=== PATIENT | male | born 1955 | race Caucasian/White ===

== ENCOUNTER 2019-09-02 10:45 | Inpatient (IN) ==
[2019-09-02 11:32] LABS: Basophils # 0.1 10*3/uL (0.0-0.2); Basophils % 0.4 % (0.0-0.8); Eosinophils # 0.3 10*3/uL (0.0-0.87); Eosinophils % 1.7 % (0.00-10.9); Hematocrit 43.1 VOL% (42.0-52.0); Hemoglobin 14.2 GM/DL (14.0-18.0); Immature Granulocytes % 0.7 %; Immature Granulocytes Absolute 0.12 #; Lymphocytes # 2.5 10*3/uL (1.4-4.0); Lymphocytes % 14.7 % (21.2-54.2); Mean Corpuscular HGB Conc 32.9 GM/DL (32-36); Mean Corpuscular Volume 87.2 FL (87-102); Mean Platelet Volume 11.3 FL (9.6-12.0); Monocytes % 7.2 % (1.7-12.7); Neutrophils % 75.3 % (38.7-73.9); Platelet Count 222 T/CUMM (130-400); Red Blood Count 4.94 MC/CUMM (3.8-5.5); Red Cell Distribution Width 14.2 % (9.3-17.3); White Blood Count 16.8 T/CUMM (4-12)
[2019-09-02] MEDS ORDERED: BISACODYL 5 MG TABLET PO PRN (11:34)
[2019-09-02] MEDS ORDERED: ACETAMINOPHEN 325 MG TABLET PO PRN (11:34)
[2019-09-02] MEDS ORDERED: ALBUTEROL/IPRATROPIUM 3 ML NEB RESP TX PRN (11:34)
[2019-09-02] MEDS ORDERED: ONDANSETRON 4 MG/2 ML VIAL IV PRN (11:34)
[2019-09-02 12:00] LABS: Alanine Aminotransferase < 9 U/L (16-61); Albumin 2.8 G/DL (3.4-5.0); Alkaline Phosphatase 84 U/L (45-117); Aspartate Amino Transferase 10 U/L (0-37); Blood Urea Nitrogen 9 MG/DL (7-18); Glucose 103 MG/DL (74-106); Osmolality,Calculated 281.1 MOS/KG (273-304); Total Protein 6.8 G/DL (6.4-8.3)
[2019-09-02 12:03] LABS: Estimated Glom Filtration Rate 0 ML/MIN
[2019-09-02] MEDS: LACTATED RINGERS 1,000 ML IV SCH ×2 (13:48→22:35)
[2019-09-02] MEDS: PIPERACILLIN/TAZOBACTAM 3,375 MG in SODIUM CHLORIDE 0.9% 100 ML IV SCH ×2 (13:48→21:46)
[2019-09-02] MEDS ORDERED: tiZANidine 4 MG TABLET PO PRN (14:32)
[2019-09-02] MEDS ORDERED: HYDROmorphone 2 MG/1 ML VIAL IV PRN (14:33)
[2019-09-02] MEDS: carvediloL 6.25 MG TABLET PO SCH (21:23)
[2019-09-02] MEDS: GABAPENTIN 600 MG TABLET PO SCH (21:23)
[2019-09-02] MEDS: MELATONIN 3 MG TABLET PO SCH (21:23)
[2019-09-02] MEDS: SIMVASTATIN 10 MG TABLET PO SCH (21:23)
[2019-09-02] MEDS: TAMSULOSIN 0.4 MG CAPSULE PO SCH (21:23)
[2019-09-02] MEDS: busPIRone 10 MG TABLET PO SCH (21:23)
[2019-09-03] MEDS: PIPERACILLIN/TAZOBACTAM 3,375 MG in SODIUM CHLORIDE 0.9% 100 ML IV SCH ×2 (05:30→13:10)
[2019-09-03] MEDS ORDERED: BUPIVACAINE MPF 0.25% 30 ML VIAL ONE (06:31)
[2019-09-03 06:38] LABS: Basophils # 0.1 10*3/uL (0.0-0.2); Basophils % 0.4 % (0.0-0.8); Eosinophils # 0.2 10*3/uL (0.0-0.87); Eosinophils % 1.5 % (0.00-10.9); Hematocrit 44.5 VOL% (42.0-52.0); Hemoglobin 14.4 GM/DL (14.0-18.0); Immature Granulocytes % 0.6 %; Lymphocytes # 2.8 10*3/uL (1.4-4.0); Lymphocytes % 17.5 % (21.2-54.2); Mean Corpuscular HGB Conc 32.4 GM/DL (32-36); Mean Corpuscular Volume 86.6 FL (87-102); Mean Platelet Volume 11.6 FL (9.6-12.0); Monocytes % 9.2 % (1.7-12.7); Neutrophils % 70.8 % (38.7-73.9); Platelet Count 240 T/CUMM (130-400); Red Blood Count 5.14 MC/CUMM (3.8-5.5); Red Cell Distribution Width 13.9 % (9.3-17.3); White Blood Count 15.7 T/CUMM (4-12)
[2019-09-03 07:03] LABS: Calcium 8.2 MG/DL (8.5-10.1); Osmolality,Calculated 275.5 MOS/KG (273-304)
[2019-09-03] MEDS ORDERED: ceFAZolin 1,000 MG VIAL ONE (07:12)
[2019-09-03] MEDS ORDERED: MIDAZOLAM 2 MG/2 ML VIAL ONE (07:24)
[2019-09-03] MEDS ORDERED: LIDOCAINE 2% 5 ML VIAL ONE (07:24)
[2019-09-03] MEDS ORDERED: ONDANSETRON 4 MG/2 ML VIAL ONE (07:24)
[2019-09-03] MEDS ORDERED: LACTATED RINGERS 1,000 ML IV ONE (07:24)
[2019-09-03] MEDS ORDERED: propofoL 200 MG/20 ML VIAL IV ONE (07:24)
[2019-09-03] MEDS ORDERED: fentaNYL 100 MCG/2 ML VIAL ONE (07:24)
[2019-09-03] MEDS ORDERED: Vortioxetine [Trintellix] 10 MG PO SCH (09:00)
[2019-09-03] MEDS: LOSARTAN 50 MG TABLET PO SCH (09:15)
[2019-09-03] MEDS: busPIRone 10 MG TABLET PO SCH ×2 (09:15→20:38)
[2019-09-03] MEDS: carvediloL 6.25 MG TABLET PO SCH ×2 (09:15→20:38)
[2019-09-03] MEDS: ASPIRIN EC 81 MG TABLET PO SCH (09:15)
[2019-09-03] MEDS: LACTATED RINGERS 1,000 ML IV SCH ×3 (09:15→20:39)
[2019-09-03] MEDS: CETIRIZINE 10 MG TABLET PO SCH (09:15)
[2019-09-03] MEDS: TAMSULOSIN 0.4 MG CAPSULE PO SCH ×2 (09:15→20:38)
[2019-09-03] MEDS: PANTOPRAZOLE 40 MG TABLET PO SCH (09:16)
[2019-09-03] MEDS: GABAPENTIN 600 MG TABLET PO SCH ×2 (09:17→20:38)
[2019-09-03] MEDS: FLUTICASONE 50 MCG NASAL SPRAY 16 GM BOTTLE BOTH NARES SCH (09:18)
[2019-09-03] MEDS: SIMVASTATIN 10 MG TABLET PO SCH (20:38)
[2019-09-03] MEDS: MELATONIN 3 MG TABLET PO SCH (20:38)
[2019-09-04] MEDS: PIPERACILLIN/TAZOBACTAM 3,375 MG in SODIUM CHLORIDE 0.9% 100 ML IV SCH ×2 (00:30→09:27)
[2019-09-04] MEDS: LACTATED RINGERS 1,000 ML IV SCH ×2 (05:13→09:19)
[2019-09-04] MEDS: TAMSULOSIN 0.4 MG CAPSULE PO SCH (09:11)
[2019-09-04] MEDS: CETIRIZINE 10 MG TABLET PO SCH (09:11)
[2019-09-04] MEDS: ASPIRIN EC 81 MG TABLET PO SCH (09:11)
[2019-09-04] MEDS: GABAPENTIN 600 MG TABLET PO SCH (09:11)
[2019-09-04] MEDS: PANTOPRAZOLE 40 MG TABLET PO SCH (09:11)
[2019-09-04] MEDS: busPIRone 10 MG TABLET PO SCH (09:11)
[2019-09-04] MEDS: carvediloL 6.25 MG TABLET PO SCH (09:11)
[2019-09-04] MEDS: LOSARTAN 50 MG TABLET PO SCH (09:11)
[2019-09-04] MEDS: FLUTICASONE 50 MCG NASAL SPRAY 16 GM BOTTLE BOTH NARES SCH (09:12)
[2019-09-04] MEDS ORDERED: SODIUM HYPOCHLORITE 0.25% IRRIG 473 ML BOTTLE TOP SCH (10:00)
[2019-09-04 11:57] VITALS: BP 135/71
== END 2019-09-04 15:27 | DRG 364 ==
LOC: EDBD → EDUNIT# → N.ED 10:45 → N.EDINP 10:45 → N.3E 13:32
PROVIDERS: ADMIT Surgery; ATTEND Surgery

== ENCOUNTER 2020-04-18 23:52 | Inpatient (IN) ==
[2020-04-19] MEDS ORDERED: SODIUM CHLORIDE 0.9% 1,000 ML IV STA (00:21)
[2020-04-19 00:32] LABS: Basophils # 0.1 10*3/uL (0.0-0.2); Basophils % 0.5 % (0.0-0.8); Eosinophils # 0.1 10*3/uL (0.0-0.87); Eosinophils % 0.9 % (0.00-10.9); Hematocrit 50.7 VOL% (42.0-52.0); Immature Granulocytes % 1.4 %; Immature Granulocytes Absolute 0.22 #; Lymphocytes # 2.7 10*3/uL (1.4-4.0); Lymphocytes % 17.7 % (21.2-54.2); Mean Corpuscular Volume 92.2 FL (87-102); Mean Platelet Volume 11.8 FL (9.6-12.0); Monocytes % 4.5 % (1.7-12.7); Platelet Count 277 T/CUMM (130-400); Red Cell Distribution Width 14.2 % (9.3-17.3); White Blood Count 15.4 T/CUMM (4-12)
[2020-04-19 00:35] LABS: Hemoglobin 15.3 GM/DL (14.0-18.0)
[2020-04-19 00:50] LABS: Albumin 2.4 G/DL (3.4-5.0); Bilirubin,Total 0.4 MG/DL (0.2-1.0); Calcium 9.2 MG/DL (8.5-10.1); Osmolality,Calculated 341.5 MOS/KG (273-304); Total Protein 8.2 G/DL (6.4-8.3)
[2020-04-19 01:42] LABS: Calcium 8.9 MG/DL (8.5-10.1); Osmolality,Calculated 339.6 MOS/KG (273-304)
[2020-04-19] MEDS ORDERED: LACTATED RINGERS 1,000 ML IV ONE (01:57)
[2020-04-19] MEDS ORDERED: ONDANSETRON 4 MG/2 ML VIAL IV PRN (01:58)
[2020-04-19] MEDS ORDERED: ALBUTEROL 2.5 MG/3 ML NEB RESP TX PRN (01:58)
[2020-04-19] MEDS ORDERED: LACTATED RINGERS 1,000 ML IV SCH (03:00)
[2020-04-19] MEDS: DEXTROSE 5% 1,000 ML IV SCH ×5 (04:09→21:34)
[2020-04-19] MEDS ORDERED: DEXTROSE 50% 25 GM/50 ML VIAL IV PRN (05:44)
[2020-04-19] MEDS ORDERED: GLUCAGON 1 MG VIAL IM PRN (05:44)
[2020-04-19] MEDS ORDERED: ENOXAPARIN 40 MG/0.4 ML SYRINGE SUBCUT SCH (06:00)
[2020-04-19] MEDS: ENOXAPARIN 40 MG/0.4 ML SYRINGE SUBCUT SCH (06:24)
[2020-04-19 08:04] LABS: Basophils # 0.1 10*3/uL (0.0-0.2); Basophils % 0.5 % (0.0-0.8); Eosinophils # 0.1 10*3/uL (0.0-0.87); Eosinophils % 0.7 % (0.00-10.9); Hematocrit 45.6 VOL% (42.0-52.0); Hemoglobin 13.5 GM/DL (14.0-18.0); Immature Granulocytes % 1.4 %; Immature Granulocytes Absolute 0.25 #; Lymphocytes # 3.1 10*3/uL (1.4-4.0); Lymphocytes % 17.8 % (21.2-54.2); Mean Corpuscular HGB Conc 29.6 GM/DL (32-36); Mean Corpuscular Volume 93.1 FL (87-102); Mean Platelet Volume 12.2 FL (9.6-12.0); Monocytes % 5.8 % (1.7-12.7); Neutrophils % 73.8 % (38.7-73.9); Platelet Count 222 T/CUMM (130-400); Red Cell Distribution Width 14.1 % (9.3-17.3); White Blood Count 17.3 T/CUMM (4-12)
[2020-04-19 08:06] LABS: Calcium 8.6 MG/DL (8.5-10.1)
[2020-04-19] MEDS ORDERED: APIXABAN 2.5 MG TABLET PER TUBE SCH (09:00)
[2020-04-19] MEDS ORDERED: FAMOTIDINE 20 MG TABLET PO SCH (09:00)
[2020-04-19 11:06] LABS: Bilirubin,Urine Negative (Negative); Blood, Urine Large mg/dL (Negative); Glucose,Urine (UA) Negative (Negative); Ketones,Urine Negative (Negative); Mucus,Urine Many /LPF (Occasional); Nitrite,Urine Negative (Negative); Protein,Urine 100 MG/DL; RBC,Urine 2767 /HPF (0-4); Urine Appearance CLOUDY (Clear); Urine Color Yellow (Yellow); Urine Specific Gravity 1.025 (1.001-1.035); Urine Urobilinogen < 2.0 EU/DL (0.2-1.0); WBC,Urine 17 /HPF (0-6)
[2020-04-19] MEDS: TAMSULOSIN 0.4 MG CAPSULE PO SCH ×2 (11:12→21:25)
[2020-04-19 16:25] LABS: Calcium 8.6 MG/DL (8.5-10.1); Osmolality,Calculated 330.2 MOS/KG (273-304)
[2020-04-19] MEDS: POTASSIUM CHLORIDE RIDER 10 MEQ in PREMIX 1 EACH IV PRN ×5 (18:10→23:48)
[2020-04-20] MEDS: DEXTROSE 5% 1,000 ML IV SCH ×5 (01:32→21:58)
[2020-04-20 04:32] LABS: Basophils # 0.1 10*3/uL (0.0-0.2); Basophils % 0.3 % (0.0-0.8); Eosinophils # 0.2 10*3/uL (0.0-0.87); Eosinophils % 1.2 % (0.00-10.9); Hematocrit 42.3 VOL% (42.0-52.0); Hemoglobin 13.1 GM/DL (14.0-18.0); Immature Granulocytes Absolute 0.15 #; Lymphocytes # 2.8 10*3/uL (1.4-4.0); Lymphocytes % 17.9 % (21.2-54.2); Mean Corpuscular Volume 88.9 FL (87-102); Mean Platelet Volume 11.8 FL (9.6-12.0); Monocytes % 6.3 % (1.7-12.7); Neutrophils % 73.3 % (38.7-73.9); Platelet Count 195 T/CUMM (130-400); Red Blood Count 4.76 MC/CUMM (3.8-5.5); Red Cell Distribution Width 13.4 % (9.3-17.3); White Blood Count 15.6 T/CUMM (4-12)
[2020-04-20 05:00] LABS: Calcium 8.1 MG/DL (8.5-10.1); Osmolality,Calculated 311.3 MOS/KG (273-304)
[2020-04-20] MEDS: POTASSIUM CHLORIDE RIDER 10 MEQ in PREMIX 1 EACH IV PRN ×10 (05:13→22:10)
[2020-04-20] MEDS: ENOXAPARIN 40 MG/0.4 ML SYRINGE SUBCUT SCH (05:13)
[2020-04-20] MEDS: FAMOTIDINE 20 MG/2 ML VIAL IV SCH (08:22)
[2020-04-20] MEDS: TAMSULOSIN 0.4 MG CAPSULE PO SCH ×2 (08:27→21:58)
[2020-04-20] MEDS: busPIRone 10 MG TABLET PO SCH (21:58)
[2020-04-21] MEDS: POTASSIUM CHLORIDE RIDER 10 MEQ in PREMIX 1 EACH IV PRN ×8 (02:28→14:22)
[2020-04-21] MEDS: DEXTROSE 5% 1,000 ML IV SCH ×3 (02:29→14:02)
[2020-04-21 06:22] LABS: Basophils # 0.1 10*3/uL (0.0-0.2); Basophils % 0.3 % (0.0-0.8); Eosinophils # 0.1 10*3/uL (0.0-0.87); Eosinophils % 0.9 % (0.00-10.9); Hemoglobin 13.5 GM/DL (14.0-18.0); Immature Granulocytes % 0.9 %; Immature Granulocytes Absolute 0.13 #; Lymphocytes # 2.4 10*3/uL (1.4-4.0); Lymphocytes % 16.3 % (21.2-54.2); Mean Corpuscular HGB Conc 31.4 GM/DL (32-36); Mean Corpuscular Volume 87.2 FL (87-102); Mean Platelet Volume 11.9 FL (9.6-12.0); Monocytes % 6.1 % (1.7-12.7); Neutrophils % 75.5 % (38.7-73.9); Platelet Count 188 T/CUMM (130-400); Red Blood Count 4.93 MC/CUMM (3.8-5.5); Red Cell Distribution Width 13.2 % (9.3-17.3)
[2020-04-21] MEDS: ENOXAPARIN 40 MG/0.4 ML SYRINGE SUBCUT SCH (06:38)
[2020-04-21 06:45] LABS: Calcium 8.3 MG/DL (8.5-10.1); Osmolality,Calculated 287.7 MOS/KG (273-304)
[2020-04-21] MEDS: LORATADINE 10 MG TABLET PO SCH (08:01)
[2020-04-21] MEDS: busPIRone 10 MG TABLET PO SCH ×2 (08:01→20:10)
[2020-04-21] MEDS: FAMOTIDINE 20 MG/2 ML VIAL IV SCH (08:01)
[2020-04-21] MEDS: MULTIVITAMIN (CENTRUM) TABLET PO SCH (08:01)
[2020-04-21] MEDS: ZINC SULFATE 220 MG CAPSULE PO SCH (08:02)
[2020-04-21] MEDS: ASCORBIC ACID 500 MG TABLET PO SCH (08:02)
[2020-04-21] MEDS: TAMSULOSIN 0.4 MG CAPSULE PO SCH ×2 (08:02→20:10)
[2020-04-22] MEDS: DEXTROSE 5% 1,000 ML IV SCH (02:00)
[2020-04-22 06:24] LABS: INR 2.1; PT Patient Result 21.5 SECS (9.8-11.9)
[2020-04-22 07:24] LABS: Basophils % 0.2 % (0.0-0.8); Eosinophils # 0.2 10*3/uL (0.0-0.87); Eosinophils % 1.3 % (0.00-10.9); Hematocrit 40.9 VOL% (42.0-52.0); Hemoglobin 13.3 GM/DL (14.0-18.0); Immature Granulocytes Absolute 0.12 #; Lymphocytes # 2.3 10*3/uL (1.4-4.0); Lymphocytes % 18.4 % (21.2-54.2); Mean Corpuscular HGB Conc 32.5 GM/DL (32-36); Mean Corpuscular Volume 85.7 FL (87-102); Mean Platelet Volume 12.8 FL (9.6-12.0); Monocytes % 7.6 % (1.7-12.7); Neutrophils % 71.5 % (38.7-73.9); Platelet Count 174 T/CUMM (130-400); Red Blood Count 4.77 MC/CUMM (3.8-5.5); Red Cell Distribution Width 13.2 % (9.3-17.3); White Blood Count 12.3 T/CUMM (4-12)
[2020-04-22 07:40] LABS: Calcium 6.9 MG/DL (8.5-10.1)
[2020-04-22 07:46] LABS: Lymphocytes 20 % (20-55); Segmented Neutrophils 73 % (50-85); Total Cells Counted 100
[2020-04-22 07:47] LABS: Hypochromasia 1+; Microcytosis 1+; Platelet Estimate Adequate
[2020-04-22] MEDS ORDERED: ceFAZolin 1,000 MG in SYRINGE 1 EACH IV ONE (08:00)
[2020-04-22] MEDS ORDERED: LACTATED RINGERS 1,000 ML IV SCH (08:00)
[2020-04-22] MEDS ORDERED: PHYTONADIONE 10 MG/1 ML AMP SUBCUT ONE (08:24)
[2020-04-22] MEDS: FAMOTIDINE 20 MG/2 ML VIAL IV SCH (09:19)
[2020-04-22] MEDS: ASCORBIC ACID 500 MG TABLET PO SCH (09:20)
[2020-04-22] MEDS: busPIRone 10 MG TABLET PO SCH ×2 (09:21→20:00)
[2020-04-22] MEDS: TAMSULOSIN 0.4 MG CAPSULE PO SCH ×2 (09:22→20:01)
[2020-04-22] MEDS: LORATADINE 10 MG TABLET PO SCH (09:22)
[2020-04-22] MEDS: MULTIVITAMIN (CENTRUM) TABLET PO SCH (09:22)
[2020-04-22] MEDS: ZINC SULFATE 220 MG CAPSULE PO SCH (09:23)
[2020-04-22] MEDS ORDERED: MAGNESIUM SULF RIDER 2 GM in PREMIX 1 EACH IV ONE (09:29)
[2020-04-22] MEDS ORDERED: POTASSIUM PHOSPHATE 15 MMOL in SODIUM CHLORIDE 0.9% 100 ML IV ONE (10:28)
[2020-04-22] MEDS: POTASSIUM CHLORIDE INJ 40 MEQ in DEXTROSE 5% LACTATED RINGERS 1,000 ML IV SCH ×2 (11:51→20:09)
[2020-04-23] MEDS: POTASSIUM CHLORIDE INJ 40 MEQ in DEXTROSE 5% LACTATED RINGERS 1,000 ML IV SCH ×3 (01:38→20:29)
[2020-04-23 05:25] LABS: Basophils % 0.2 % (0.0-0.8); Eosinophils # 0.1 10*3/uL (0.0-0.87); Eosinophils % 0.9 % (0.00-10.9); Hematocrit 38.4 VOL% (42.0-52.0); Hemoglobin 12.7 GM/DL (14.0-18.0); Immature Granulocytes % 0.6 %; Immature Granulocytes Absolute 0.07 #; Lymphocytes # 1.6 10*3/uL (1.4-4.0); Lymphocytes % 15.2 % (21.2-54.2); Mean Corpuscular HGB Conc 33.1 GM/DL (32-36); Mean Platelet Volume 12.8 FL (9.6-12.0); Monocytes % 8.5 % (1.7-12.7); Neutrophils % 74.6 % (38.7-73.9); Platelet Count 169 T/CUMM (130-400); Red Blood Count 4.57 MC/CUMM (3.8-5.5); Red Cell Distribution Width 13.2 % (9.3-17.3); White Blood Count 10.8 T/CUMM (4-12)
[2020-04-23 05:40] LABS: INR 1.3; PT Patient Result 13.7 SECS (9.8-11.9)
[2020-04-23 06:16] LABS: Calcium 6.9 MG/DL (8.5-10.1); Osmolality,Calculated 284.8 MOS/KG (273-304)
[2020-04-23] MEDS ORDERED: LACTATED RINGERS 1,000 ML IV SCH (08:00)
[2020-04-23] MEDS ORDERED: ceFAZolin 1,000 MG in SYRINGE 1 EACH IV ONE (08:26)
[2020-04-23] MEDS ORDERED: propofoL 200 MG/20 ML VIAL IV ONE (09:00)
[2020-04-23] MEDS ORDERED: LIDOCAINE 2% 5 ML VIAL ONE (09:00)
[2020-04-23] MEDS ORDERED: ETOMIDATE 20 MG/10 ML VIAL IV ONE (09:00)
[2020-04-23] MEDS: FAMOTIDINE 20 MG/2 ML VIAL IV SCH (09:30)
[2020-04-23] MEDS ORDERED: CALCIUM GLUCONATE 2,000 MG in SODIUM CHLORIDE 0.9% 100 ML IV ONE (10:00)
[2020-04-23] MEDS: busPIRone 10 MG TABLET PO SCH ×2 (10:28→20:29)
[2020-04-23] MEDS: MULTIVITAMIN (CENTRUM) TABLET PO SCH (10:29)
[2020-04-23] MEDS: LORATADINE 10 MG TABLET PO SCH (10:32)
[2020-04-23] MEDS: TAMSULOSIN 0.4 MG CAPSULE PO SCH ×2 (10:32→20:29)
[2020-04-23] MEDS: ASCORBIC ACID 500 MG TABLET PO SCH (10:34)
[2020-04-23] MEDS: ZINC SULFATE 220 MG CAPSULE PO SCH (10:34)
[2020-04-23] MEDS: THIAMINE 100 MG TABLET PER TUBE SCH (17:40)
[2020-04-24] MEDS: POTASSIUM CHLORIDE INJ 40 MEQ in DEXTROSE 5% LACTATED RINGERS 1,000 ML IV SCH ×3 (02:18→21:38)
[2020-04-24 06:36] LABS: Calcium 8.5 MG/DL (8.5-10.1); Osmolality,Calculated 278.3 MOS/KG (273-304)
[2020-04-24] MEDS ORDERED: SODIUM PHOSPHATE INJ 15 MMOL in SODIUM CHLORIDE 0.9% 250 ML IV ONE ×2 (07:39→18:00)
[2020-04-24] MEDS: MULTIVITAMIN (CENTRUM) TABLET PO SCH (10:18)
[2020-04-24] MEDS: ASCORBIC ACID 500 MG TABLET PO SCH (10:18)
[2020-04-24] MEDS: FAMOTIDINE 20 MG/2 ML VIAL IV SCH (10:18)
[2020-04-24] MEDS: TAMSULOSIN 0.4 MG CAPSULE PO SCH ×2 (10:18→21:37)
[2020-04-24] MEDS: busPIRone 10 MG TABLET PO SCH ×2 (10:18→21:37)
[2020-04-24] MEDS: LORATADINE 10 MG TABLET PO SCH (10:19)
[2020-04-24] MEDS: THIAMINE 100 MG TABLET PER TUBE SCH (10:19)
[2020-04-24] MEDS: ZINC SULFATE 220 MG CAPSULE PO SCH (10:19)
[2020-04-24] MEDS: POTASSIUM PHOS/SOD PHOS POWDER 250 MG PACK PO SCH ×2 (17:30→21:37)
[2020-04-24] MEDS ORDERED: ALPRAZolam 0.25 MG TABLET PO ONE (19:28)
[2020-04-25 07:38] LABS: Calcium 7.8 MG/DL (8.5-10.1)
[2020-04-25] MEDS: ZINC SULFATE 220 MG CAPSULE PO SCH (09:39)
[2020-04-25] MEDS: ASCORBIC ACID 500 MG TABLET PO SCH (09:40)
[2020-04-25] MEDS: THIAMINE 100 MG TABLET PER TUBE SCH (09:40)
[2020-04-25] MEDS: MULTIVITAMIN (CENTRUM) TABLET PO SCH (09:40)
[2020-04-25] MEDS: POTASSIUM PHOS/SOD PHOS POWDER 250 MG PACK PO SCH (09:40)
[2020-04-25] MEDS: busPIRone 10 MG TABLET PO SCH (09:40)
[2020-04-25] MEDS: TAMSULOSIN 0.4 MG CAPSULE PO SCH (09:40)
[2020-04-25] MEDS: LORATADINE 10 MG TABLET PO SCH (09:40)
[2020-04-25] MEDS: FAMOTIDINE 20 MG/2 ML VIAL IV SCH (09:41)
[2020-04-25 11:34] VITALS: BP 119/67
== END 2020-04-25 12:36 | disposition home or self-care (01) | DRG 640 ==
LOC: EDUNIT# → EDBD → N.ED 23:52 → N.EDINP 04-19 01:58 → SUATTDRO 04-19 01:58 → N.CC 04-19 03:02 → N.4E 04-21 18:08
PROVIDERS: ADMIT Internal Medicine; ATTEND Internal Medicine
PROC: EGDWPEG (ICD-10-PCS; 2020-04-23 10:35)

== ENCOUNTER 2020-08-07 16:26 | Inpatient (IN) ==
[2020-08-07] MEDS ORDERED: ACETAMINOPHEN 500 MG TABLET PO STA (17:31)
[2020-08-07 17:46] LABS: Alanine Aminotransferase 12 U/L (16-61); Alkaline Phosphatase 87 U/L (45-117); Aspartate Amino Transferase 14 U/L (0-37); Bilirubin,Total < 0.39 MG/DL (0.2-1.0); Blood Urea Nitrogen 28 MG/DL (7-18); Calcium 8.6 MG/DL (8.5-10.1); Carbon Dioxide 29 MMOL/L (21-32); Estimated Glom Filtration Rate 69 ML/MIN; Glucose 184 MG/DL (74-106); Osmolality,Calculated 289.4 MOS/KG (273-304); Potassium 5.1 MMOL/L (3.5-5.1); Sodium 140 MMOL/L (136-145); Total Protein 8.7 G/DL (6.4-8.3)
[2020-08-07] MEDS ORDERED: CLINDAMYCIN INJ 900 MG in PREMIX 1 EACH IV STA (18:53)
[2020-08-07] MEDS ORDERED: cefTRIAXone 1,000 MG in SODIUM CHLORIDE 0.9% 100 ML IV STA (18:53)
[2020-08-07 19:31] LABS: Basophils # 0.1 10*3/uL (0.0-0.2); Basophils % 0.2 % (0.0-0.8); Eosinophils # 0.2 10*3/uL (0.0-0.87); Eosinophils % 0.8 % (0.00-10.9); Hematocrit 39.4 VOL% (42.0-52.0); Hemoglobin 12.1 GM/DL (14.0-18.0); Immature Granulocytes % 0.7 %; Immature Granulocytes Absolute 0.16 #; Lymphocytes # 1.4 10*3/uL (1.4-4.0); Lymphocytes % 5.8 % (21.2-54.2); Mean Corpuscular HGB Conc 30.7 GM/DL (32-36); Mean Platelet Volume 12.5 FL (9.6-12.0); Monocytes % 5.3 % (1.7-12.7); Neutrophils % 87.2 % (38.7-73.9); Platelet Count 392 T/CUMM (130-400); Red Blood Count 4.69 MC/CUMM (3.8-5.5); Red Cell Distribution Width 16.4 % (9.3-17.3); White Blood Count 24.2 T/CUMM (4-12)
[2020-08-07] MEDS ORDERED: GLUCAGON 1 MG VIAL IM PRN (19:39)
[2020-08-07] MEDS ORDERED: DEXTROSE 50% 25 GM/50 ML VIAL IV PRN (19:39)
[2020-08-07] MEDS ORDERED: ALBUTEROL/IPRATROPIUM 3 ML NEB RESP TX PRN (19:48)
[2020-08-07 19:57] LABS: Lymphocytes 6 % (20-55); Platelet Estimate Adequate; Segmented Neutrophils 87 % (50-85); Total Cells Counted 100
[2020-08-07] MEDS: PIPERACILLIN/TAZOBACTAM 3,375 MG in SODIUM CHLORIDE 0.9% 100 ML IV SCH (22:15)
[2020-08-07] MEDS: ENOXAPARIN 40 MG/0.4 ML SYRINGE SUBCUT SCH (22:17)
[2020-08-07] MEDS: TAMSULOSIN 0.4 MG CAPSULE PO SCH (23:41)
[2020-08-07] MEDS: busPIRone 15 MG TABLET PEG SCH (23:42)
[2020-08-07] MEDS: carvediloL 6.25 MG TABLET PEG SCH (23:42)
[2020-08-07] MEDS: SIMVASTATIN 10 MG TABLET PO SCH (23:42)
[2020-08-07] MEDS: GABAPENTIN 50 MG/ML 30 ML/BOTTLE PEG SCH (23:42)
[2020-08-08] MEDS ORDERED: SODIUM CHLORIDE 0.9% 500 ML IV ONE (03:33)
[2020-08-08] MEDS: SODIUM CHLORIDE 0.9% 1,000 ML IV SCH (03:50)
[2020-08-08] MEDS: ACETAMINOPHEN 325 MG TABLET PEG PRN (03:55)
[2020-08-08] MEDS: PIPERACILLIN/TAZOBACTAM 3,375 MG in SODIUM CHLORIDE 0.9% 100 ML IV SCH ×3 (05:44→20:39)
[2020-08-08] MEDS: ALBUTEROL/IPRATROPIUM 3 ML NEB RESP TX SCH ×3 (07:40→19:31)
[2020-08-08 07:56] LABS: Basophils # 0.1 10*3/uL (0.0-0.2); Basophils % 0.3 % (0.0-0.8); Hematocrit 38.7 VOL% (42.0-52.0); Hemoglobin 11.7 GM/DL (14.0-18.0); Immature Granulocytes % 1.2 %; Immature Granulocytes Absolute 0.51 #; Lymphocytes # 2.5 10*3/uL (1.4-4.0); Mean Corpuscular HGB Conc 30.2 GM/DL (32-36); Mean Corpuscular Volume 85.4 FL (87-102); Mean Platelet Volume 11.9 FL (9.6-12.0); Monocytes % 6.4 % (1.7-12.7); Neutrophils % 86.1 % (38.7-73.9); Platelet Count 317 T/CUMM (130-400); Red Blood Count 4.53 MC/CUMM (3.8-5.5); Red Cell Distribution Width 16.4 % (9.3-17.3)
[2020-08-08 07:59] LABS: White Blood Count 42.7 T/CUMM (4-12)
[2020-08-08 08:12] LABS: Blood Urea Nitrogen 31 MG/DL (7-18); Calcium 8.2 MG/DL (8.5-10.1); Carbon Dioxide 18 MMOL/L (21-32); Estimated Glom Filtration Rate 53 ML/MIN; Glucose 113 MG/DL (74-106); HDL Cholesterol 14 MG/DL (40-60); Osmolality,Calculated 284.5 MOS/KG (273-304); Potassium 5.5 MMOL/L (3.5-5.1); Risk Ratio 3.57; Sodium 139 MMOL/L (136-145); Triglycerides 79 MG/DL (2-150); VLDL CHOLESTEROL 15.8 MG/DL
[2020-08-08] MEDS ORDERED: INFLUENZA VIRUS VACCINE 0.5 ML SYRINGE IM ONE (09:00)
[2020-08-08 09:02] LABS: Band Neutrophils 10 % (0-10); Lymphocytes 8 % (20-55); Platelet Estimate Normal; Segmented Neutrophils 76 % (50-85); Total Cells Counted 100
[2020-08-08 09:03] LABS: Anisocytosis 1+
[2020-08-08] MEDS ORDERED: SODIUM POLYSTYRENE SULFATE 15 GM/60 ML BOTTLE PO ONE (09:08)
[2020-08-08] MEDS: MULTIVITAMIN (CENTRUM) TABLET PEG SCH (09:59)
[2020-08-08] MEDS: ASPIRIN EC 81 MG TABLET PO SCH (09:59)
[2020-08-08] MEDS: carvediloL 6.25 MG TABLET PEG SCH ×2 (09:59→17:05)
[2020-08-08] MEDS: busPIRone 15 MG TABLET PEG SCH ×2 (09:59→20:40)
[2020-08-08] MEDS: LORATADINE 10 MG TABLET PEG SCH (09:59)
[2020-08-08] MEDS: TAMSULOSIN 0.4 MG CAPSULE PO SCH ×2 (09:59→20:40)
[2020-08-08] MEDS: VANCOMYCIN INJ 1,000 MG in SODIUM CHLORIDE 0.9% 250 ML IV SCH (10:04)
[2020-08-08] MEDS: GABAPENTIN 50 MG/ML 30 ML/BOTTLE PEG SCH ×2 (15:37→20:40)
[2020-08-08] MEDS: ENOXAPARIN 40 MG/0.4 ML SYRINGE SUBCUT SCH (20:40)
[2020-08-08] MEDS: SIMVASTATIN 10 MG TABLET PO SCH (20:40)
[2020-08-09] MEDS: SODIUM CHLORIDE 0.9% 1,000 ML IV SCH ×3 (02:18→23:40)
[2020-08-09] MEDS: PIPERACILLIN/TAZOBACTAM 3,375 MG in SODIUM CHLORIDE 0.9% 100 ML IV SCH ×3 (05:02→20:39)
[2020-08-09 06:27] LABS: Basophils # 0.1 10*3/uL (0.0-0.2); Basophils % 0.2 % (0.0-0.8); Eosinophils # 0.1 10*3/uL (0.0-0.87); Eosinophils % 0.4 % (0.00-10.9); Hematocrit 34.5 VOL% (42.0-52.0); Hemoglobin 10.8 GM/DL (14.0-18.0); Immature Granulocytes % 1.2 %; Lymphocytes # 1.9 10*3/uL (1.4-4.0); Lymphocytes % 5.9 % (21.2-54.2); Mean Corpuscular HGB Conc 31.3 GM/DL (32-36); Mean Corpuscular Volume 83.1 FL (87-102); Mean Platelet Volume 11.6 FL (9.6-12.0); Monocytes % 5.2 % (1.7-12.7); Neutrophils % 87.1 % (38.7-73.9); Platelet Count 306 T/CUMM (130-400); Red Blood Count 4.15 MC/CUMM (3.8-5.5); Red Cell Distribution Width 16.3 % (9.3-17.3); White Blood Count 32.2 T/CUMM (4-12)
[2020-08-09 06:56] LABS: Calcium 8.4 MG/DL (8.5-10.1); Osmolality,Calculated 296.7 MOS/KG (273-304); Potassium 3.8 MMOL/L (3.5-5.1)
[2020-08-09 07:08] LABS: Band Neutrophils 10 % (0-10); Eosinophils 1 % (0-10); Lymphocytes 8 % (20-55); Segmented Neutrophils 74 % (50-85); Total Cells Counted 100
[2020-08-09 07:09] LABS: Anisocytosis 1+; Platelet Estimate Normal
[2020-08-09] MEDS: ALBUTEROL/IPRATROPIUM 3 ML NEB RESP TX SCH ×3 (07:20→19:30)
[2020-08-09] MEDS: carvediloL 6.25 MG TABLET PEG SCH ×2 (09:27→17:12)
[2020-08-09] MEDS: TAMSULOSIN 0.4 MG CAPSULE PO SCH ×2 (09:28→20:38)
[2020-08-09] MEDS: busPIRone 15 MG TABLET PEG SCH ×2 (09:28→20:38)
[2020-08-09] MEDS: ASPIRIN EC 81 MG TABLET PO SCH (09:29)
[2020-08-09] MEDS: LORATADINE 10 MG TABLET PEG SCH (09:29)
[2020-08-09] MEDS: VANCOMYCIN INJ 1,000 MG in SODIUM CHLORIDE 0.9% 250 ML IV SCH (09:29)
[2020-08-09] MEDS: MULTIVITAMIN (CENTRUM) TABLET PEG SCH (09:29)
[2020-08-09] MEDS: GABAPENTIN 50 MG/ML 30 ML/BOTTLE PEG SCH ×2 (17:59→20:42)
[2020-08-09] MEDS: SIMVASTATIN 10 MG TABLET PO SCH (20:38)
[2020-08-09] MEDS: ENOXAPARIN 40 MG/0.4 ML SYRINGE SUBCUT SCH (20:38)
[2020-08-10] MEDS: PIPERACILLIN/TAZOBACTAM 3,375 MG in SODIUM CHLORIDE 0.9% 100 ML IV SCH ×4 (04:43→22:30)
[2020-08-10 06:31] LABS: Basophils % 0.1 % (0.0-0.8); Eosinophils # 0.2 10*3/uL (0.0-0.87); Eosinophils % 0.8 % (0.00-10.9); Hematocrit 34.2 VOL% (42.0-52.0); Hemoglobin 10.4 GM/DL (14.0-18.0); Immature Granulocytes % 0.9 %; Lymphocytes # 1.3 10*3/uL (1.4-4.0); Lymphocytes % 5.8 % (21.2-54.2); Mean Corpuscular HGB Conc 30.4 GM/DL (32-36); Mean Corpuscular Volume 83.4 FL (87-102); Mean Platelet Volume 12.4 FL (9.6-12.0); Monocytes % 4.6 % (1.7-12.7); Neutrophils % 87.8 % (38.7-73.9); Platelet Count 304 T/CUMM (130-400); Red Cell Distribution Width 16.2 % (9.3-17.3); White Blood Count 22.6 T/CUMM (4-12)
[2020-08-10 06:49] LABS: Calcium 8.1 MG/DL (8.5-10.1); Osmolality,Calculated 303.3 MOS/KG (273-304); Potassium 3.7 MMOL/L (3.5-5.1)
[2020-08-10 07:04] LABS: Hypochromasia 1+; Lymphocytes 3 % (20-55); Microcytosis 1+; Platelet Estimate Adequate; Segmented Neutrophils 93 % (50-85); Total Cells Counted 100
[2020-08-10] MEDS: ALBUTEROL/IPRATROPIUM 3 ML NEB RESP TX SCH ×3 (07:25→19:26)
[2020-08-10] MEDS: MULTIVITAMIN (CENTRUM) TABLET PEG SCH (08:54)
[2020-08-10] MEDS: carvediloL 6.25 MG TABLET PEG SCH ×2 (08:54→17:11)
[2020-08-10] MEDS: ASPIRIN EC 81 MG TABLET PO SCH (08:54)
[2020-08-10] MEDS: busPIRone 15 MG TABLET PEG SCH ×2 (08:54→20:48)
[2020-08-10] MEDS: LORATADINE 10 MG TABLET PEG SCH (08:54)
[2020-08-10] MEDS: SODIUM CHLORIDE 0.9% 1,000 ML IV SCH (08:55)
[2020-08-10] MEDS: TAMSULOSIN 0.4 MG CAPSULE PO SCH ×2 (08:55→20:48)
[2020-08-10] MEDS ORDERED: DEXTROSE 5% 1,000 ML IV SCH (09:30)
[2020-08-10] MEDS: VANCOMYCIN INJ 1,000 MG in SODIUM CHLORIDE 0.9% 250 ML IV SCH (10:22)
[2020-08-10] MEDS: GABAPENTIN 50 MG/ML 30 ML/BOTTLE PEG SCH ×2 (17:49→20:51)
[2020-08-10] MEDS: ENOXAPARIN 40 MG/0.4 ML SYRINGE SUBCUT SCH (20:48)
[2020-08-10] MEDS: ZALEPLON 5 MG CAPSULE PO PRN (20:48)
[2020-08-10] MEDS: SIMVASTATIN 10 MG TABLET PO SCH (20:51)
[2020-08-11] MEDS: SODIUM CHLORIDE 0.9% 1,000 ML IV SCH ×2 (00:46→20:51)
[2020-08-11] MEDS: PIPERACILLIN/TAZOBACTAM 3,375 MG in SODIUM CHLORIDE 0.9% 100 ML IV SCH ×3 (06:00→23:10)
[2020-08-11 06:07] LABS: Basophils # 0.1 10*3/uL (0.0-0.2); Basophils % 0.2 % (0.0-0.8); Eosinophils # 0.3 10*3/uL (0.0-0.87); Eosinophils % 1.2 % (0.00-10.9); Hematocrit 34.9 VOL% (42.0-52.0); Hemoglobin 10.7 GM/DL (14.0-18.0); Immature Granulocytes Absolute 0.23 #; Lymphocytes # 2.1 10*3/uL (1.4-4.0); Lymphocytes % 9.3 % (21.2-54.2); Mean Corpuscular HGB Conc 30.7 GM/DL (32-36); Mean Corpuscular Volume 83.5 FL (87-102); Neutrophils % 82.3 % (38.7-73.9); Platelet Count 335 T/CUMM (130-400); Red Blood Count 4.18 MC/CUMM (3.8-5.5); Red Cell Distribution Width 16.6 % (9.3-17.3); White Blood Count 22.2 T/CUMM (4-12)
[2020-08-11 06:20] LABS: Calcium 8.6 MG/DL (8.5-10.1); Osmolality,Calculated 309.1 MOS/KG (273-304); Potassium 3.4 MMOL/L (3.5-5.1)
[2020-08-11 06:32] LABS: Eosinophils 1 % (0-10); Hypochromasia 1+; Lymphocytes 15 % (20-55); Microcytosis 1+; Platelet Estimate Adequate; Segmented Neutrophils 77 % (50-85); Total Cells Counted 100
[2020-08-11] MEDS: ALBUTEROL/IPRATROPIUM 3 ML NEB RESP TX SCH ×3 (07:15→19:50)
[2020-08-11] MEDS: busPIRone 15 MG TABLET PEG SCH ×2 (12:30→20:50)
[2020-08-11] MEDS: ASPIRIN EC 81 MG TABLET PO SCH (12:30)
[2020-08-11] MEDS: carvediloL 6.25 MG TABLET PEG SCH ×2 (12:30→16:14)
[2020-08-11] MEDS: TAMSULOSIN 0.4 MG CAPSULE PO SCH ×2 (12:30→20:50)
[2020-08-11] MEDS: MULTIVITAMIN (CENTRUM) TABLET PEG SCH (12:30)
[2020-08-11] MEDS: LORATADINE 10 MG TABLET PEG SCH (12:30)
[2020-08-11] MEDS: VANCOMYCIN INJ 1,000 MG in SODIUM CHLORIDE 0.9% 250 ML IV SCH (12:44)
[2020-08-11] MEDS: GABAPENTIN 50 MG/ML 30 ML/BOTTLE PEG SCH ×2 (16:13→21:09)
[2020-08-11] MEDS: ZALEPLON 5 MG CAPSULE PO PRN (20:50)
[2020-08-11] MEDS: ENOXAPARIN 40 MG/0.4 ML SYRINGE SUBCUT SCH (20:50)
[2020-08-11] MEDS: SIMVASTATIN 10 MG TABLET PO SCH (20:50)
[2020-08-12 06:09] LABS: Calcium 7.5 MG/DL (8.5-10.1); Osmolality,Calculated 306.1 MOS/KG (273-304); Potassium 3.3 MMOL/L (3.5-5.1)
[2020-08-12] MEDS: PIPERACILLIN/TAZOBACTAM 3,375 MG in SODIUM CHLORIDE 0.9% 100 ML IV SCH (06:15)
[2020-08-12 06:39] LABS: Basophils # 0.1 10*3/uL (0.0-0.2); Basophils % 0.3 % (0.0-0.8); Eosinophils # 0.5 10*3/uL (0.0-0.87); Eosinophils % 2.6 % (0.00-10.9); Hematocrit 31.6 VOL% (42.0-52.0); Immature Granulocytes % 0.8 %; Immature Granulocytes Absolute 0.15 #; Lymphocytes # 2.1 10*3/uL (1.4-4.0); Lymphocytes % 10.8 % (21.2-54.2); Mean Corpuscular HGB Conc 30.4 GM/DL (32-36); Mean Corpuscular Volume 84.9 FL (87-102); Mean Platelet Volume 12.6 FL (9.6-12.0); Monocytes % 5.8 % (1.7-12.7); NRBC # 0.02 10*3/uL; Neutrophils % 79.7 % (38.7-73.9); Platelet Count 332 T/CUMM (130-400); Red Blood Count 3.72 MC/CUMM (3.8-5.5); Red Cell Distribution Width 16.6 % (9.3-17.3); White Blood Count 19.4 T/CUMM (4-12)
[2020-08-12 06:40] LABS: Hemoglobin 9.6 GM/DL (14.0-18.0)
[2020-08-12 06:53] LABS: Eosinophils 1 % (0-10); Hypochromasia 1+; Lymphocytes 5 % (20-55); Microcytosis 1+; Platelet Estimate Adequate; Segmented Neutrophils 90 % (50-85); Total Cells Counted 100
[2020-08-12] MEDS: ALBUTEROL/IPRATROPIUM 3 ML NEB RESP TX SCH ×3 (07:49→19:42)
[2020-08-12] MEDS: LORATADINE 10 MG TABLET PEG SCH (08:22)
[2020-08-12] MEDS: ASPIRIN EC 81 MG TABLET PO SCH (08:22)
[2020-08-12] MEDS: TAMSULOSIN 0.4 MG CAPSULE PO SCH ×2 (08:22→20:22)
[2020-08-12] MEDS: carvediloL 6.25 MG TABLET PEG SCH ×2 (08:22→16:37)
[2020-08-12] MEDS: busPIRone 15 MG TABLET PEG SCH ×2 (08:22→20:22)
[2020-08-12] MEDS: MULTIVITAMIN (CENTRUM) TABLET PEG SCH (08:22)
[2020-08-12] MEDS: cefTRIAXone 1,000 MG in SYRINGE 1 EACH IV SCH (13:42)
[2020-08-12] MEDS: CLINDAMYCIN INJ 600 MG in PREMIX 1 EACH IV SCH ×2 (13:43→21:03)
[2020-08-12] MEDS: SODIUM CHLORIDE 0.9% 1,000 ML IV SCH ×3 (14:30→23:50)
[2020-08-12] MEDS: GABAPENTIN 50 MG/ML 30 ML/BOTTLE PEG SCH ×2 (15:48→20:22)
[2020-08-12] MEDS: ZALEPLON 5 MG CAPSULE PO PRN (20:22)
[2020-08-12] MEDS: ENOXAPARIN 40 MG/0.4 ML SYRINGE SUBCUT SCH (20:22)
[2020-08-12] MEDS: SIMVASTATIN 10 MG TABLET PO SCH (20:22)
[2020-08-12] MEDS: ACETAMINOPHEN 325 MG TABLET PEG PRN (21:25)
[2020-08-13] MEDS: CLINDAMYCIN INJ 600 MG in PREMIX 1 EACH IV SCH ×3 (05:25→21:05)
[2020-08-13 06:05] LABS: Calcium 7.9 MG/DL (8.5-10.1); Osmolality,Calculated 304.3 MOS/KG (273-304); Potassium 3.5 MMOL/L (3.5-5.1)
[2020-08-13] MEDS: ALBUTEROL/IPRATROPIUM 3 ML NEB RESP TX SCH ×3 (07:00→19:17)
[2020-08-13 08:31] LABS: Basophils % 0.2 % (0.0-0.8); Eosinophils # 0.7 10*3/uL (0.0-0.87); Eosinophils % 3.2 % (0.00-10.9); Hematocrit 33.2 VOL% (42.0-52.0); Immature Granulocytes % 0.9 %; Immature Granulocytes Absolute 0.19 #; Lymphocytes # 2.1 10*3/uL (1.4-4.0); Lymphocytes % 9.6 % (21.2-54.2); Mean Corpuscular HGB Conc 30.1 GM/DL (32-36); Mean Platelet Volume 11.7 FL (9.6-12.0); Neutrophils % 81.1 % (38.7-73.9); Platelet Count 309 T/CUMM (130-400); Red Blood Count 3.86 MC/CUMM (3.8-5.5); Red Cell Distribution Width 16.9 % (9.3-17.3); White Blood Count 21.6 T/CUMM (4-12)
[2020-08-13 08:53] LABS: Eosinophils 4 % (0-10); Lymphocytes 3 % (20-55); Metamyelocytes 1 %; Segmented Neutrophils 89 % (50-85); Total Cells Counted 100
[2020-08-13 08:54] LABS: Hypochromasia 1+; Microcytosis 1+; Platelet Estimate Normal
[2020-08-13] MEDS: carvediloL 6.25 MG TABLET PEG SCH ×2 (09:45→18:35)
[2020-08-13] MEDS: LORATADINE 10 MG TABLET PEG SCH (09:45)
[2020-08-13] MEDS: ASPIRIN EC 81 MG TABLET PO SCH (09:45)
[2020-08-13] MEDS: MULTIVITAMIN (CENTRUM) TABLET PEG SCH (09:45)
[2020-08-13] MEDS: busPIRone 15 MG TABLET PEG SCH ×2 (09:45→20:44)
[2020-08-13] MEDS: TAMSULOSIN 0.4 MG CAPSULE PO SCH ×2 (09:46→20:44)
[2020-08-13] MEDS: cefTRIAXone 1,000 MG in SYRINGE 1 EACH IV SCH (15:37)
[2020-08-13] MEDS: SODIUM CHLORIDE 0.9% 1,000 ML IV SCH (15:38)
[2020-08-13] MEDS: GABAPENTIN 50 MG/ML 30 ML/BOTTLE PEG SCH ×2 (18:35→20:43)
[2020-08-13] MEDS: SIMVASTATIN 10 MG TABLET PO SCH (20:44)
[2020-08-13] MEDS: ZALEPLON 5 MG CAPSULE PO PRN (20:44)
[2020-08-13] MEDS: ENOXAPARIN 40 MG/0.4 ML SYRINGE SUBCUT SCH (20:44)
[2020-08-13] MEDS: ACETAMINOPHEN 325 MG TABLET PEG PRN (21:04)
[2020-08-14] MEDS: SODIUM CHLORIDE 0.9% 1,000 ML IV SCH (01:43)
[2020-08-14] MEDS: CLINDAMYCIN INJ 600 MG in PREMIX 1 EACH IV SCH (05:45)
[2020-08-14] MEDS: ACETAMINOPHEN 325 MG TABLET PEG PRN ×2 (06:10→21:29)
[2020-08-14] MEDS: ALBUTEROL/IPRATROPIUM 3 ML NEB RESP TX SCH ×3 (07:12→18:57)
[2020-08-14] MEDS: TAMSULOSIN 0.4 MG CAPSULE PO SCH ×2 (08:55→21:29)
[2020-08-14] MEDS: MULTIVITAMIN (CENTRUM) TABLET PEG SCH (08:55)
[2020-08-14] MEDS: busPIRone 15 MG TABLET PEG SCH ×2 (08:55→21:29)
[2020-08-14] MEDS: ASPIRIN EC 81 MG TABLET PO SCH (08:55)
[2020-08-14] MEDS: LORATADINE 10 MG TABLET PEG SCH (08:56)
[2020-08-14] MEDS: PIPERACILLIN/TAZOBACTAM 3,375 MG in SODIUM CHLORIDE 0.9% 100 ML IV SCH ×2 (11:00→22:36)
[2020-08-14] MEDS: carvediloL 6.25 MG TABLET PEG SCH ×2 (13:34→18:14)
[2020-08-14] MEDS: GABAPENTIN 50 MG/ML 30 ML/BOTTLE PEG SCH ×2 (18:14→21:29)
[2020-08-14] MEDS: DEXTROSE 5% NACL 0.45% 1,000 ML IV SCH (18:39)
[2020-08-14] MEDS ORDERED: ZALEPLON 5 MG CAPSULE PO PRN (20:36)
[2020-08-14] MEDS: SIMVASTATIN 10 MG TABLET PO SCH (21:29)
[2020-08-14] MEDS: ENOXAPARIN 40 MG/0.4 ML SYRINGE SUBCUT SCH (21:29)
[2020-08-14] MEDS: ZALEPLON 5 MG CAPSULE PO PRN (21:29)
[2020-08-15 05:22] LABS: Basophils # 0.1 10*3/uL (0.0-0.2); Basophils % 0.3 % (0.0-0.8); Eosinophils # 0.9 10*3/uL (0.0-0.87); Eosinophils % 4.9 % (0.00-10.9); Hematocrit 31.7 VOL% (42.0-52.0); Hemoglobin 9.6 GM/DL (14.0-18.0); Immature Granulocytes % 1.6 %; Lymphocytes # 2.3 10*3/uL (1.4-4.0); Lymphocytes % 12.7 % (21.2-54.2); Mean Corpuscular HGB Conc 30.3 GM/DL (32-36); Mean Corpuscular Volume 82.8 FL (87-102); Monocytes % 5.7 % (1.7-12.7); Neutrophils % 74.8 % (38.7-73.9); Platelet Count 373 T/CUMM (130-400); Red Blood Count 3.83 MC/CUMM (3.8-5.5); Red Cell Distribution Width 16.6 % (9.3-17.3); White Blood Count 18.3 T/CUMM (4-12)
[2020-08-15 05:36] LABS: Calcium 7.6 MG/DL (8.5-10.1); Osmolality,Calculated 293.4 MOS/KG (273-304); Potassium 3.5 MMOL/L (3.5-5.1)
[2020-08-15] MEDS: PIPERACILLIN/TAZOBACTAM 3,375 MG in SODIUM CHLORIDE 0.9% 100 ML IV SCH ×3 (06:17→23:39)
[2020-08-15] MEDS: ALBUTEROL/IPRATROPIUM 3 ML NEB RESP TX SCH ×3 (07:33→19:33)
[2020-08-15] MEDS: LORATADINE 10 MG TABLET PEG SCH (09:55)
[2020-08-15] MEDS: MULTIVITAMIN (CENTRUM) TABLET PEG SCH (09:55)
[2020-08-15] MEDS: busPIRone 15 MG TABLET PEG SCH ×2 (09:55→21:28)
[2020-08-15] MEDS: ASPIRIN EC 81 MG TABLET PO SCH (09:55)
[2020-08-15] MEDS: TAMSULOSIN 0.4 MG CAPSULE PO SCH ×2 (09:55→21:27)
[2020-08-15] MEDS: carvediloL 6.25 MG TABLET PEG SCH ×2 (09:56→18:09)
[2020-08-15] MEDS: GABAPENTIN 50 MG/ML 30 ML/BOTTLE PEG SCH ×2 (18:09→21:27)
[2020-08-15] MEDS: ENOXAPARIN 40 MG/0.4 ML SYRINGE SUBCUT SCH (21:27)
[2020-08-15] MEDS: ACETAMINOPHEN 325 MG TABLET PEG PRN (21:27)
[2020-08-15] MEDS: SIMVASTATIN 10 MG TABLET PO SCH (21:28)
[2020-08-15] MEDS: ZALEPLON 5 MG CAPSULE PER TUBE PRN (22:26)
[2020-08-16] MEDS: PIPERACILLIN/TAZOBACTAM 3,375 MG in SODIUM CHLORIDE 0.9% 100 ML IV SCH ×3 (06:00→22:42)
[2020-08-16] MEDS ORDERED: PROTEIN SUPPLEMENT PEG SCH (08:00)
[2020-08-16] MEDS: ALBUTEROL/IPRATROPIUM 3 ML NEB RESP TX SCH ×3 (08:45→19:09)
[2020-08-16] MEDS: LORATADINE 10 MG TABLET PEG SCH (09:54)
[2020-08-16] MEDS: carvediloL 6.25 MG TABLET PEG SCH ×2 (09:54→17:38)
[2020-08-16] MEDS: MULTIVITAMIN (CENTRUM) TABLET PEG SCH (09:54)
[2020-08-16] MEDS: TAMSULOSIN 0.4 MG CAPSULE PO SCH ×2 (09:54→21:28)
[2020-08-16] MEDS: busPIRone 15 MG TABLET PEG SCH ×2 (09:54→21:28)
[2020-08-16] MEDS: ASPIRIN EC 81 MG TABLET PO SCH (09:54)
[2020-08-16] MEDS: ACETAMINOPHEN 325 MG TABLET PEG PRN (15:59)
[2020-08-16] MEDS: GABAPENTIN 50 MG/ML 30 ML/BOTTLE PEG SCH ×2 (17:38→21:29)
[2020-08-16] MEDS: SIMVASTATIN 10 MG TABLET PO SCH (21:29)
[2020-08-16] MEDS: ENOXAPARIN 40 MG/0.4 ML SYRINGE SUBCUT SCH (21:29)
[2020-08-16] MEDS: ZALEPLON 5 MG CAPSULE PER TUBE PRN (21:31)
[2020-08-17 06:09] LABS: Calcium 7.8 MG/DL (8.5-10.1); Osmolality,Calculated 277.4 MOS/KG (273-304); Potassium 3.6 MMOL/L (3.5-5.1)
[2020-08-17] MEDS: PIPERACILLIN/TAZOBACTAM 3,375 MG in SODIUM CHLORIDE 0.9% 100 ML IV SCH ×3 (06:10→22:57)
[2020-08-17 06:54] LABS: Basophils # 0.1 10*3/uL (0.0-0.2); Basophils % 0.4 % (0.0-0.8); Eosinophils # 0.7 10*3/uL (0.0-0.87); Eosinophils % 4.2 % (0.00-10.9); Hematocrit 34.3 VOL% (42.0-52.0); Hemoglobin 9.9 GM/DL (14.0-18.0); Immature Granulocytes % 1.5 %; Immature Granulocytes Absolute 0.24 #; Lymphocytes # 2.2 10*3/uL (1.4-4.0); Lymphocytes % 13.7 % (21.2-54.2); Mean Corpuscular HGB Conc 28.9 GM/DL (32-36); Mean Corpuscular Volume 89.1 FL (87-102); Mean Platelet Volume 11.8 FL (9.6-12.0); Monocytes % 6.4 % (1.7-12.7); NRBC # 0.02 10*3/uL; Neutrophils % 73.8 % (38.7-73.9); Platelet Count 396 T/CUMM (130-400); Red Blood Count 3.85 MC/CUMM (3.8-5.5); Red Cell Distribution Width 16.9 % (9.3-17.3); White Blood Count 16.3 T/CUMM (4-12)
[2020-08-17] MEDS: ALBUTEROL/IPRATROPIUM 3 ML NEB RESP TX SCH ×3 (07:30→19:07)
[2020-08-17] MEDS: DEXTROSE 5% NACL 0.45% 1,000 ML IV SCH ×4 (08:30→22:53)
[2020-08-17] MEDS: busPIRone 15 MG TABLET PEG SCH ×2 (09:57→22:29)
[2020-08-17] MEDS: ASPIRIN EC 81 MG TABLET PO SCH (09:57)
[2020-08-17] MEDS: carvediloL 6.25 MG TABLET PEG SCH ×2 (09:57→16:15)
[2020-08-17] MEDS: MULTIVITAMIN (CENTRUM) TABLET PEG SCH (09:57)
[2020-08-17] MEDS: TAMSULOSIN 0.4 MG CAPSULE PO SCH ×2 (09:57→22:29)
[2020-08-17] MEDS: LORATADINE 10 MG TABLET PEG SCH (09:57)
[2020-08-17] MEDS: SODIUM CHLORIDE 3% 4 ML NEB RESP TX SCH ×2 (14:42→19:07)
[2020-08-17] MEDS ORDERED: SODIUM CHLORIDE 3% 4 ML NEB RESP TX SCH (15:00)
[2020-08-17] MEDS: GABAPENTIN 50 MG/ML 30 ML/BOTTLE PEG SCH ×2 (16:15→22:32)
[2020-08-17] MEDS: SIMVASTATIN 10 MG TABLET PO SCH (22:29)
[2020-08-17] MEDS: ZALEPLON 5 MG CAPSULE PER TUBE PRN (22:29)
[2020-08-17] MEDS: ENOXAPARIN 40 MG/0.4 ML SYRINGE SUBCUT SCH (22:30)
[2020-08-18 05:48] LABS: Basophils % 0.2 % (0.0-0.8); Eosinophils # 0.8 10*3/uL (0.0-0.87); Eosinophils % 4.9 % (0.00-10.9); Hematocrit 31.7 VOL% (42.0-52.0); Hemoglobin 9.6 GM/DL (14.0-18.0); Immature Granulocytes % 1.5 %; Immature Granulocytes Absolute 0.25 #; Lymphocytes # 2.4 10*3/uL (1.4-4.0); Lymphocytes % 14.4 % (21.2-54.2); Mean Corpuscular HGB Conc 30.3 GM/DL (32-36); Mean Corpuscular Volume 83.2 FL (87-102); Platelet Count 434 T/CUMM (130-400); Red Blood Count 3.81 MC/CUMM (3.8-5.5); Red Cell Distribution Width 16.3 % (9.3-17.3); White Blood Count 16.7 T/CUMM (4-12)
[2020-08-18] MEDS: PIPERACILLIN/TAZOBACTAM 3,375 MG in SODIUM CHLORIDE 0.9% 100 ML IV SCH ×2 (06:01→15:56)
[2020-08-18 06:06] LABS: Osmolality,Calculated 277.5 MOS/KG (273-304); Potassium 3.4 MMOL/L (3.5-5.1)
[2020-08-18] MEDS: SODIUM CHLORIDE 3% 4 ML NEB RESP TX SCH ×3 (07:31→20:15)
[2020-08-18] MEDS: ALBUTEROL/IPRATROPIUM 3 ML NEB RESP TX SCH ×3 (07:31→20:15)
[2020-08-18 08:09] LABS: Albumin 1.3 G/DL (3.4-5.0); Total Protein 6.1 G/DL (6.4-8.3)
[2020-08-18 08:21] LABS: INR 1.3; PT Patient Result 13.5 SECS (9.8-11.9)
[2020-08-18] MEDS: carvediloL 6.25 MG TABLET PEG SCH ×2 (08:50→17:45)
[2020-08-18 15:01] LABS: Eosinophils,Pleural Fluid 1 %; Lymphocytes,Pleural Fluid 1 %; Neutrophils,Pleural Fluid 98 %
[2020-08-18 15:02] LABS: RBC,Pleural Fluid 1290 T/CUMM
[2020-08-18] MEDS: TAMSULOSIN 0.4 MG CAPSULE PO SCH ×2 (15:40→21:54)
[2020-08-18] MEDS: ASPIRIN EC 81 MG TABLET PO SCH (15:40)
[2020-08-18] MEDS: LORATADINE 10 MG TABLET PEG SCH (15:40)
[2020-08-18] MEDS: MULTIVITAMIN (CENTRUM) TABLET PEG SCH (15:41)
[2020-08-18] MEDS: ACETAMINOPHEN 325 MG TABLET PEG PRN ×2 (15:41→21:54)
[2020-08-18] MEDS: busPIRone 15 MG TABLET PEG SCH ×2 (15:42→21:53)
[2020-08-18] MEDS: GABAPENTIN 50 MG/ML 30 ML/BOTTLE PEG SCH ×2 (15:42→21:57)
[2020-08-18] MEDS ORDERED: ALBUTEROL/IPRATROPIUM 3 ML NEB RESP TX ONE (16:20)
[2020-08-18] MEDS: NYSTATIN POWDER 15 GM BOTTLE TOP SCH (17:45)
[2020-08-18] MEDS: ZALEPLON 5 MG CAPSULE PER TUBE PRN (21:53)
[2020-08-18] MEDS: SIMVASTATIN 10 MG TABLET PO SCH (21:54)
[2020-08-18] MEDS: ENOXAPARIN 40 MG/0.4 ML SYRINGE SUBCUT SCH (21:55)
[2020-08-19] MEDS: NYSTATIN POWDER 15 GM BOTTLE TOP SCH ×3 (00:01→21:57)
[2020-08-19] MEDS: PIPERACILLIN/TAZOBACTAM 3,375 MG in SODIUM CHLORIDE 0.9% 100 ML IV SCH ×3 (00:01→14:31)
[2020-08-19] MEDS: ALBUTEROL/IPRATROPIUM 3 ML NEB RESP TX SCH ×3 (07:00→19:31)
[2020-08-19] MEDS: SODIUM CHLORIDE 3% 4 ML NEB RESP TX SCH ×3 (07:00→19:31)
[2020-08-19 08:31] LABS: Basophils # 0.1 10*3/uL (0.0-0.2); Basophils % 0.4 % (0.0-0.8); Eosinophils # 0.7 10*3/uL (0.0-0.87); Eosinophils % 4.5 % (0.00-10.9); Hematocrit 33.5 VOL% (42.0-52.0); Hemoglobin 10.2 GM/DL (14.0-18.0); Immature Granulocytes Absolute 0.16 #; Lymphocytes # 2.1 10*3/uL (1.4-4.0); Lymphocytes % 13.4 % (21.2-54.2); Mean Corpuscular HGB Conc 30.4 GM/DL (32-36); Mean Corpuscular Volume 82.9 FL (87-102); Monocytes % 5.8 % (1.7-12.7); Neutrophils % 74.9 % (38.7-73.9); Platelet Count 512 T/CUMM (130-400); Red Blood Count 4.04 MC/CUMM (3.8-5.5); Red Cell Distribution Width 16.2 % (9.3-17.3); White Blood Count 15.9 T/CUMM (4-12)
[2020-08-19 08:49] LABS: Calcium 8.3 MG/DL (8.5-10.1); Osmolality,Calculated 279.3 MOS/KG (273-304); Potassium 3.4 MMOL/L (3.5-5.1)
[2020-08-19] MEDS: DEXTROSE 5% NACL 0.45% 1,000 ML IV SCH ×3 (09:18→10:41)
[2020-08-19] MEDS: carvediloL 6.25 MG TABLET PEG SCH ×2 (10:40→16:30)
[2020-08-19] MEDS: TAMSULOSIN 0.4 MG CAPSULE PO SCH ×2 (10:40→21:56)
[2020-08-19] MEDS: MULTIVITAMIN (CENTRUM) TABLET PEG SCH (10:40)
[2020-08-19] MEDS: ASPIRIN EC 81 MG TABLET PO SCH (10:40)
[2020-08-19] MEDS: POTASSIUM CHLORIDE 20 MEQ/15 ML UDCUP PER TUBE PRN ×3 (10:40→16:30)
[2020-08-19] MEDS: LORATADINE 10 MG TABLET PEG SCH (10:40)
[2020-08-19] MEDS: busPIRone 15 MG TABLET PEG SCH ×2 (10:40→21:56)
[2020-08-19] MEDS: ACETAMINOPHEN 325 MG TABLET PEG PRN (14:31)
[2020-08-19] MEDS: GABAPENTIN 50 MG/ML 30 ML/BOTTLE PEG SCH ×2 (16:30→21:57)
[2020-08-19] MEDS: SIMVASTATIN 10 MG TABLET PO SCH (21:56)
[2020-08-19] MEDS: ENOXAPARIN 40 MG/0.4 ML SYRINGE SUBCUT SCH (21:56)
[2020-08-19] MEDS: ZALEPLON 5 MG CAPSULE PER TUBE PRN (21:56)
[2020-08-20] MEDS: PIPERACILLIN/TAZOBACTAM 3,375 MG in SODIUM CHLORIDE 0.9% 100 ML IV SCH ×3 (01:07→18:00)
[2020-08-20 03:21] LABS: Basophils # 0.1 10*3/uL (0.0-0.2); Basophils % 0.4 % (0.0-0.8); Eosinophils # 0.8 10*3/uL (0.0-0.87); Eosinophils % 4.8 % (0.00-10.9); Hematocrit 30.9 VOL% (42.0-52.0); Hemoglobin 9.7 GM/DL (14.0-18.0); Immature Granulocytes % 0.7 %; Immature Granulocytes Absolute 0.11 #; Lymphocytes # 2.5 10*3/uL (1.4-4.0); Lymphocytes % 15.4 % (21.2-54.2); Mean Corpuscular HGB Conc 31.4 GM/DL (32-36); Mean Corpuscular Volume 80.5 FL (87-102); Mean Platelet Volume 10.9 FL (9.6-12.0); Monocytes % 5.4 % (1.7-12.7); Neutrophils % 73.3 % (38.7-73.9); Platelet Count 480 T/CUMM (130-400); Red Blood Count 3.84 MC/CUMM (3.8-5.5); Red Cell Distribution Width 16.1 % (9.3-17.3); White Blood Count 16.1 T/CUMM (4-12)
[2020-08-20 04:13] LABS: Calcium 8.1 MG/DL (8.5-10.1); Osmolality,Calculated 278.3 MOS/KG (273-304); Potassium 3.8 MMOL/L (3.5-5.1)
[2020-08-20 04:16] LABS: Calcium 8.1 MG/DL (8.5-10.1); Osmolality,Calculated 276.4 MOS/KG (273-304); Potassium 3.8 MMOL/L (3.5-5.1)
[2020-08-20] MEDS: ALBUTEROL/IPRATROPIUM 3 ML NEB RESP TX SCH ×3 (07:00→19:35)
[2020-08-20] MEDS: SODIUM CHLORIDE 3% 4 ML NEB RESP TX SCH ×3 (07:10→19:35)
[2020-08-20] MEDS: ASPIRIN EC 81 MG TABLET PO SCH (09:02)
[2020-08-20] MEDS: carvediloL 6.25 MG TABLET PEG SCH ×2 (09:02→18:08)
[2020-08-20] MEDS: busPIRone 15 MG TABLET PEG SCH (09:03)
[2020-08-20] MEDS: LORATADINE 10 MG TABLET PEG SCH (09:03)
[2020-08-20] MEDS: NYSTATIN POWDER 15 GM BOTTLE TOP SCH (09:03)
[2020-08-20] MEDS: TAMSULOSIN 0.4 MG CAPSULE PO SCH (09:03)
[2020-08-20] MEDS: MULTIVITAMIN (CENTRUM) TABLET PEG SCH (09:03)
[2020-08-20] MEDS: GABAPENTIN 50 MG/ML 30 ML/BOTTLE PEG SCH (18:00)
[2020-08-20] MEDS ORDERED: ZIPRASIDONE 20 MG/1 ML VIAL IM ONE (18:11)
[2020-08-20] MEDS: ZALEPLON 5 MG CAPSULE PER TUBE PRN (21:52)
[2020-08-21] MEDS ORDERED: ZIPRASIDONE 20 MG/1 ML VIAL IM ONE (01:20)
[2020-08-21 05:49] LABS: Basophils # 0.1 10*3/uL (0.0-0.2); Basophils % 0.4 % (0.0-0.8); Eosinophils # 0.7 10*3/uL (0.0-0.87); Eosinophils % 4.4 % (0.00-10.9); Hematocrit 32.9 VOL% (42.0-52.0); Immature Granulocytes % 0.8 %; Immature Granulocytes Absolute 0.12 #; Lymphocytes # 2.5 10*3/uL (1.4-4.0); Lymphocytes % 16.5 % (21.2-54.2); Mean Corpuscular HGB Conc 30.4 GM/DL (32-36); Mean Corpuscular Volume 81.2 FL (87-102); Monocytes % 7.9 % (1.7-12.7); NRBC # 0.02 10*3/uL; Platelet Count 510 T/CUMM (130-400); Red Blood Count 4.05 MC/CUMM (3.8-5.5); Red Cell Distribution Width 16.3 % (9.3-17.3); White Blood Count 15.1 T/CUMM (4-12)
[2020-08-21 06:09] LABS: Calcium 8.6 MG/DL (8.5-10.1); Osmolality,Calculated 282.3 MOS/KG (273-304); Potassium 3.7 MMOL/L (3.5-5.1)
[2020-08-21] MEDS: ALBUTEROL/IPRATROPIUM 3 ML NEB RESP TX SCH ×3 (07:53→21:15)
[2020-08-21] MEDS: SODIUM CHLORIDE 3% 4 ML NEB RESP TX SCH ×3 (07:53→21:16)
[2020-08-21] MEDS: ENOXAPARIN 40 MG/0.4 ML SYRINGE SUBCUT SCH ×2 (08:13→21:08)
[2020-08-21] MEDS: SIMVASTATIN 10 MG TABLET PO SCH ×2 (08:13→20:53)
[2020-08-21] MEDS: busPIRone 15 MG TABLET PEG SCH ×3 (08:13→20:53)
[2020-08-21] MEDS: NYSTATIN POWDER 15 GM BOTTLE TOP SCH ×3 (08:13→21:09)
[2020-08-21] MEDS: TAMSULOSIN 0.4 MG CAPSULE PO SCH ×3 (08:13→20:53)
[2020-08-21] MEDS: GABAPENTIN 50 MG/ML 30 ML/BOTTLE PEG SCH ×3 (08:13→21:09)
[2020-08-21] MEDS: DEXTROSE 5% NACL 0.45% 1,000 ML IV SCH (08:53)
[2020-08-21] MEDS: ASPIRIN EC 81 MG TABLET PO SCH (08:53)
[2020-08-21] MEDS: LORATADINE 10 MG TABLET PEG SCH (08:53)
[2020-08-21] MEDS: MULTIVITAMIN (CENTRUM) TABLET PEG SCH (08:53)
[2020-08-21] MEDS: carvediloL 6.25 MG TABLET PEG SCH ×2 (08:53→17:30)
[2020-08-21] MEDS: AMPICILLIN/SULBACTAM 3,000 MG in SODIUM CHLORIDE 0.9% 100 ML IV SCH ×2 (12:22→18:02)
[2020-08-21] MEDS ORDERED: LORazepam 2 MG/1 ML VIAL IV ONE (17:05)
[2020-08-21] MEDS: ZALEPLON 5 MG CAPSULE PER TUBE PRN (20:52)
[2020-08-21] MEDS: ZIPRASIDONE 20 MG/1 ML VIAL IM PRN (20:53)
[2020-08-22] MEDS: ALBUTEROL/IPRATROPIUM 3 ML NEB RESP TX SCH ×7 (00:12→23:56)
[2020-08-22] MEDS: DEXTROSE 5% NACL 0.45% 1,000 ML IV SCH ×3 (00:24→18:26)
[2020-08-22] MEDS: AMPICILLIN/SULBACTAM 3,000 MG in SODIUM CHLORIDE 0.9% 100 ML IV SCH ×3 (03:19→18:26)
[2020-08-22] MEDS: SODIUM CHLORIDE 3% 4 ML NEB RESP TX SCH ×3 (07:26→19:25)
[2020-08-22] MEDS: ASPIRIN EC 81 MG TABLET PO SCH (09:43)
[2020-08-22] MEDS: carvediloL 6.25 MG TABLET PEG SCH ×2 (09:43→18:26)
[2020-08-22] MEDS: busPIRone 15 MG TABLET PEG SCH ×2 (09:43→22:24)
[2020-08-22] MEDS: MULTIVITAMIN (CENTRUM) TABLET PEG SCH (09:43)
[2020-08-22] MEDS: POTASSIUM CHLORIDE 20 MEQ/15 ML UDCUP PER TUBE PRN (09:43)
[2020-08-22] MEDS: TAMSULOSIN 0.4 MG CAPSULE PO SCH ×2 (09:43→22:24)
[2020-08-22] MEDS: LORATADINE 10 MG TABLET PEG SCH (09:43)
[2020-08-22] MEDS: NYSTATIN POWDER 15 GM BOTTLE TOP SCH ×2 (09:44→22:24)
[2020-08-22] MEDS: GABAPENTIN 50 MG/ML 30 ML/BOTTLE PEG SCH ×2 (16:49→22:24)
[2020-08-22] MEDS: SIMVASTATIN 10 MG TABLET PO SCH (22:23)
[2020-08-22] MEDS: ZALEPLON 5 MG CAPSULE PER TUBE PRN (22:24)
[2020-08-22] MEDS: ENOXAPARIN 40 MG/0.4 ML SYRINGE SUBCUT SCH (22:24)
[2020-08-23] MEDS: AMPICILLIN/SULBACTAM 3,000 MG in SODIUM CHLORIDE 0.9% 100 ML IV SCH ×3 (02:40→18:12)
[2020-08-23] MEDS: ALBUTEROL/IPRATROPIUM 3 ML NEB RESP TX SCH ×6 (03:22→23:50)
[2020-08-23] MEDS: DEXTROSE 5% NACL 0.45% 1,000 ML IV SCH ×2 (05:16→22:26)
[2020-08-23 06:06] LABS: Basophils # 0.1 10*3/uL (0.0-0.2); Basophils % 0.4 % (0.0-0.8); Eosinophils # 0.7 10*3/uL (0.0-0.87); Eosinophils % 5.5 % (0.00-10.9); Hematocrit 32.8 VOL% (42.0-52.0); Hemoglobin 9.7 GM/DL (14.0-18.0); Immature Granulocytes % 0.8 %; Lymphocytes # 2.7 10*3/uL (1.4-4.0); Lymphocytes % 22.3 % (21.2-54.2); Mean Corpuscular HGB Conc 29.6 GM/DL (32-36); Mean Corpuscular Volume 82.4 FL (87-102); Mean Platelet Volume 10.6 FL (9.6-12.0); Monocytes % 8.2 % (1.7-12.7); Neutrophils % 62.8 % (38.7-73.9); Platelet Count 528 T/CUMM (130-400); Red Blood Count 3.98 MC/CUMM (3.8-5.5); Red Cell Distribution Width 16.4 % (9.3-17.3); White Blood Count 12.1 T/CUMM (4-12)
[2020-08-23 06:31] LABS: Calcium 8.3 MG/DL (8.5-10.1); Osmolality,Calculated 281.1 MOS/KG (273-304); Potassium 3.8 MMOL/L (3.5-5.1)
[2020-08-23] MEDS: SODIUM CHLORIDE 3% 4 ML NEB RESP TX SCH ×4 (06:55→19:25)
[2020-08-23] MEDS: ASPIRIN EC 81 MG TABLET PO SCH (09:11)
[2020-08-23] MEDS: TAMSULOSIN 0.4 MG CAPSULE PO SCH ×2 (09:11→22:25)
[2020-08-23] MEDS: LORATADINE 10 MG TABLET PEG SCH (09:11)
[2020-08-23] MEDS: MULTIVITAMIN (CENTRUM) TABLET PEG SCH (09:11)
[2020-08-23] MEDS: carvediloL 6.25 MG TABLET PEG SCH ×2 (09:11→16:08)
[2020-08-23] MEDS: busPIRone 15 MG TABLET PEG SCH ×2 (09:11→22:25)
[2020-08-23] MEDS: NYSTATIN POWDER 15 GM BOTTLE TOP SCH ×2 (09:12→22:25)
[2020-08-23] MEDS: GABAPENTIN 50 MG/ML 30 ML/BOTTLE PEG SCH ×2 (16:08→22:25)
[2020-08-23] MEDS: SIMVASTATIN 10 MG TABLET PO SCH (22:25)
[2020-08-24] MEDS: ALBUTEROL/IPRATROPIUM 3 ML NEB RESP TX SCH ×6 (03:10→23:55)
[2020-08-24] MEDS: AMPICILLIN/SULBACTAM 3,000 MG in SODIUM CHLORIDE 0.9% 100 ML IV SCH ×3 (03:27→19:30)
[2020-08-24 05:49] LABS: Basophils # 0.1 10*3/uL (0.0-0.2); Basophils % 0.5 % (0.0-0.8); Eosinophils # 0.6 10*3/uL (0.0-0.87); Eosinophils % 5.1 % (0.00-10.9); Hematocrit 33.9 VOL% (42.0-52.0); Hemoglobin 10.3 GM/DL (14.0-18.0); Immature Granulocytes % 0.8 %; Immature Granulocytes Absolute 0.09 #; Lymphocytes # 2.5 10*3/uL (1.4-4.0); Lymphocytes % 22.1 % (21.2-54.2); Mean Corpuscular HGB Conc 30.4 GM/DL (32-36); Mean Corpuscular Volume 81.3 FL (87-102); Mean Platelet Volume 10.5 FL (9.6-12.0); Monocytes % 8.3 % (1.7-12.7); Neutrophils % 63.2 % (38.7-73.9); Platelet Count 497 T/CUMM (130-400); Red Blood Count 4.17 MC/CUMM (3.8-5.5); Red Cell Distribution Width 16.6 % (9.3-17.3); White Blood Count 11.1 T/CUMM (4-12)
[2020-08-24] MEDS ORDERED: VANCOMYCIN INJ 1,000 MG in SODIUM CHLORIDE 0.9% 250 ML IV ONE (06:00)
[2020-08-24 06:06] LABS: Calcium 8.8 MG/DL (8.5-10.1); Osmolality,Calculated 276.4 MOS/KG (273-304); Potassium 3.7 MMOL/L (3.5-5.1)
[2020-08-24] MEDS ORDERED: HEPARIN/NACL 0.9% 2 UNITS/ML 500 ML IV ONE ×2 (06:58→11:35)
[2020-08-24] MEDS ORDERED: PHENYLEPHRINE DRIP 20 MG/250 ML PREMIX IV ONE (06:58)
[2020-08-24] MEDS: SODIUM CHLORIDE 3% 4 ML NEB RESP TX SCH ×3 (07:44→19:19)
[2020-08-24] MEDS ORDERED: fentaNYL 100 MCG/2 ML VIAL ONE (08:27)
[2020-08-24] MEDS ORDERED: ePHEDrine 50 MG/ML VIAL ONE (09:35)
[2020-08-24] MEDS ORDERED: TISSUE ADHESIVE 1 EACH APPLICATOR TOP ONE (11:10)
[2020-08-24] MEDS ORDERED: LIDOCAINE 2% 5 ML VIAL ONE (11:31)
[2020-08-24] MEDS ORDERED: propofoL 200 MG/20 ML VIAL IV ONE (11:31)
[2020-08-24] MEDS ORDERED: PHENYLEPHRINE 1 MG/10 ML SYRINGE IV ONE (11:31)
[2020-08-24] MEDS ORDERED: SEVOFLURANE 1 UNIT/15 MINUTE INH ONE (11:31)
[2020-08-24] MEDS ORDERED: KETOROLAC 30 MG/1 ML VIAL IV ONE (13:04)
[2020-08-24] MEDS: carvediloL 6.25 MG TABLET PEG SCH ×2 (16:05→19:00)
[2020-08-24] MEDS: ASPIRIN EC 81 MG TABLET PO SCH (16:05)
[2020-08-24] MEDS: MULTIVITAMIN (CENTRUM) TABLET PEG SCH (16:13)
[2020-08-24] MEDS: LORATADINE 10 MG TABLET PEG SCH (16:13)
[2020-08-24] MEDS: busPIRone 15 MG TABLET PEG SCH ×2 (16:13→21:39)
[2020-08-24] MEDS: TAMSULOSIN 0.4 MG CAPSULE PO SCH ×2 (16:13→21:38)
[2020-08-24] MEDS: NYSTATIN POWDER 15 GM BOTTLE TOP SCH ×2 (16:14→22:49)
[2020-08-24] MEDS: KETOROLAC 10 MG TABLET PO SCH (19:00)
[2020-08-24] MEDS: GABAPENTIN 50 MG/ML 30 ML/BOTTLE PEG SCH ×2 (20:53→22:49)
[2020-08-24] MEDS: SIMVASTATIN 10 MG TABLET PO SCH (21:38)
[2020-08-25] MEDS: KETOROLAC 10 MG TABLET PO SCH ×4 (02:30→17:38)
[2020-08-25] MEDS: AMPICILLIN/SULBACTAM 3,000 MG in SODIUM CHLORIDE 0.9% 100 ML IV SCH ×3 (02:30→17:38)
[2020-08-25] MEDS: ALBUTEROL/IPRATROPIUM 3 ML NEB RESP TX SCH ×6 (04:04→23:15)
[2020-08-25 06:56] LABS: Basophils # 0.1 10*3/uL (0.0-0.2); Basophils % 0.4 % (0.0-0.8); Eosinophils # 0.5 10*3/uL (0.0-0.87); Eosinophils % 3.1 % (0.00-10.9); Hematocrit 28.7 VOL% (42.0-52.0); Hemoglobin 8.4 GM/DL (14.0-18.0); Immature Granulocytes % 0.7 %; Immature Granulocytes Absolute 0.11 #; Lymphocytes # 2.4 10*3/uL (1.4-4.0); Lymphocytes % 16.3 % (21.2-54.2); Mean Corpuscular HGB Conc 29.3 GM/DL (32-36); Mean Platelet Volume 10.4 FL (9.6-12.0); Neutrophils % 70.5 % (38.7-73.9); Platelet Count 353 T/CUMM (130-400); Red Cell Distribution Width 16.8 % (9.3-17.3); White Blood Count 14.8 T/CUMM (4-12)
[2020-08-25 07:19] LABS: Anisocytosis 2+; Platelet Estimate Normal
[2020-08-25 07:20] LABS: Hypochromasia Slight
[2020-08-25 07:25] LABS: Bilirubin,Urine Negative (Negative); Blood, Urine Moderate mg/dL (Negative); Glucose,Urine (UA) 50 mg/dL (Negative); Ketones,Urine Negative (Negative); Mucus,Urine Occasional /LPF (Occasional); Nitrite,Urine Negative (Negative); Protein,Urine 30 MG/DL; RBC,Urine 27 /HPF (0-4); Squamous Epithelial Cell,Urine Occasional /HPF (0-10); Urine Appearance CLOUDY (Clear); Urine Color Amber (Yellow); Urine Specific Gravity 1.024 (1.001-1.035); Urine Urobilinogen < 2.0 EU/DL (0.2-1.0); WBC,Urine 44 /HPF (0-6)
[2020-08-25 07:39] LABS: Calcium 8.1 MG/DL (8.5-10.1); Osmolality,Calculated 277.5 MOS/KG (273-304); Potassium 3.9 MMOL/L (3.5-5.1)
[2020-08-25] MEDS: SODIUM CHLORIDE 3% 4 ML NEB RESP TX SCH ×3 (07:46→19:48)
[2020-08-25] MEDS: carvediloL 6.25 MG TABLET PEG SCH ×2 (10:34→17:39)
[2020-08-25] MEDS: TAMSULOSIN 0.4 MG CAPSULE PO SCH ×2 (10:35→20:15)
[2020-08-25] MEDS: LORATADINE 10 MG TABLET PEG SCH (10:35)
[2020-08-25] MEDS: busPIRone 15 MG TABLET PEG SCH ×2 (10:35→20:15)
[2020-08-25] MEDS: MULTIVITAMIN (CENTRUM) TABLET PEG SCH (10:35)
[2020-08-25] MEDS: ASPIRIN EC 81 MG TABLET PO SCH (10:35)
[2020-08-25] MEDS: NYSTATIN POWDER 15 GM BOTTLE TOP SCH ×2 (10:36→21:55)
[2020-08-25] MEDS: MENTHOL/ZINC OXIDE OINT 71 GM JAR TOP SCH ×2 (15:37→20:14)
[2020-08-25] MEDS: GABAPENTIN 50 MG/ML 30 ML/BOTTLE PEG SCH ×2 (17:37→21:55)
[2020-08-25] MEDS: ZIPRASIDONE 20 MG/1 ML VIAL IM PRN (19:35)
[2020-08-25] MEDS: SIMVASTATIN 10 MG TABLET PO SCH (20:15)
[2020-08-26] MEDS: AMPICILLIN/SULBACTAM 3,000 MG in SODIUM CHLORIDE 0.9% 100 ML IV SCH ×4 (02:15→18:47)
[2020-08-26] MEDS: KETOROLAC 10 MG TABLET PO SCH ×4 (02:15→17:20)
[2020-08-26] MEDS: ALBUTEROL/IPRATROPIUM 3 ML NEB RESP TX SCH ×6 (03:42→23:30)
[2020-08-26] MEDS: SODIUM CHLORIDE 3% 4 ML NEB RESP TX SCH ×3 (07:40→19:30)
[2020-08-26 08:59] LABS: Basophils # 0.1 10*3/uL (0.0-0.2); Basophils % 0.3 % (0.0-0.8); Eosinophils # 0.4 10*3/uL (0.0-0.87); Eosinophils % 2.5 % (0.00-10.9); Hematocrit 25.6 VOL% (42.0-52.0); Hemoglobin 7.5 GM/DL (14.0-18.0); Immature Granulocytes % 0.7 %; Lymphocytes # 2.6 10*3/uL (1.4-4.0); Lymphocytes % 17.2 % (21.2-54.2); Mean Corpuscular HGB Conc 29.3 GM/DL (32-36); Mean Corpuscular Volume 85.6 FL (87-102); Neutrophils % 71.3 % (38.7-73.9); Platelet Count 382 T/CUMM (130-400); Red Blood Count 2.99 MC/CUMM (3.8-5.5); Red Cell Distribution Width 16.6 % (9.3-17.3); White Blood Count 15.3 T/CUMM (4-12)
[2020-08-26] MEDS: ZIPRASIDONE 20 MG/1 ML VIAL IM PRN ×2 (09:20→19:53)
[2020-08-26] MEDS: TAMSULOSIN 0.4 MG CAPSULE PO SCH ×2 (09:30→20:48)
[2020-08-26] MEDS: carvediloL 6.25 MG TABLET PEG SCH ×2 (09:31→17:20)
[2020-08-26] MEDS: MULTIVITAMIN (CENTRUM) TABLET PEG SCH (09:31)
[2020-08-26] MEDS: ASPIRIN EC 81 MG TABLET PO SCH (09:31)
[2020-08-26] MEDS: busPIRone 15 MG TABLET PEG SCH ×2 (09:31→20:48)
[2020-08-26] MEDS: LORATADINE 10 MG TABLET PEG SCH (09:31)
[2020-08-26] MEDS: NYSTATIN POWDER 15 GM BOTTLE TOP SCH ×2 (09:32→20:48)
[2020-08-26] MEDS: MENTHOL/ZINC OXIDE OINT 71 GM JAR TOP SCH ×2 (09:46→20:48)
[2020-08-26 09:50] LABS: Calcium 8.3 MG/DL (8.5-10.1); Osmolality,Calculated 285.3 MOS/KG (273-304); Potassium 4.3 MMOL/L (3.5-5.1)
[2020-08-26] MEDS: GABAPENTIN 50 MG/ML 30 ML/BOTTLE PEG SCH ×2 (17:20→20:48)
[2020-08-26] MEDS: SIMVASTATIN 10 MG TABLET PO SCH (20:48)
[2020-08-27] MEDS: AMPICILLIN/SULBACTAM 3,000 MG in SODIUM CHLORIDE 0.9% 100 ML IV SCH ×3 (02:00→16:16)
[2020-08-27] MEDS: ZIPRASIDONE 20 MG/1 ML VIAL IM PRN ×4 (02:00→21:09)
[2020-08-27] MEDS: KETOROLAC 10 MG TABLET PO SCH ×4 (02:00→17:42)
[2020-08-27] MEDS: ALBUTEROL/IPRATROPIUM 3 ML NEB RESP TX SCH ×6 (03:10→19:55)
[2020-08-27 05:33] LABS: Basophils # 0.1 10*3/uL (0.0-0.2); Basophils % 0.4 % (0.0-0.8); Eosinophils # 0.7 10*3/uL (0.0-0.87); Eosinophils % 5.4 % (0.00-10.9); Hematocrit 22.4 VOL% (42.0-52.0); Hemoglobin 6.8 GM/DL (14.0-18.0); Immature Granulocytes % 0.7 %; Immature Granulocytes Absolute 0.08 #; Lymphocytes # 2.5 10*3/uL (1.4-4.0); Lymphocytes % 20.5 % (21.2-54.2); Mean Corpuscular HGB Conc 30.4 GM/DL (32-36); Mean Corpuscular Volume 82.1 FL (87-102); Mean Platelet Volume 11.3 FL (9.6-12.0); Monocytes % 9.7 % (1.7-12.7); Neutrophils % 63.3 % (38.7-73.9); Platelet Count 342 T/CUMM (130-400); Red Blood Count 2.73 MC/CUMM (3.8-5.5); Red Cell Distribution Width 16.9 % (9.3-17.3); White Blood Count 12.1 T/CUMM (4-12)
[2020-08-27 06:22] LABS: Calcium 7.7 MG/DL (8.5-10.1); Potassium 4.5 MMOL/L (3.5-5.1)
[2020-08-27] MEDS: SODIUM CHLORIDE 3% 4 ML NEB RESP TX SCH ×3 (07:13→19:55)
[2020-08-27] MEDS: MENTHOL/ZINC OXIDE OINT 71 GM JAR TOP SCH ×2 (08:44→21:30)
[2020-08-27] MEDS: MULTIVITAMIN (CENTRUM) TABLET PEG SCH (08:44)
[2020-08-27] MEDS: busPIRone 15 MG TABLET PEG SCH ×2 (08:44→20:59)
[2020-08-27] MEDS: TAMSULOSIN 0.4 MG CAPSULE PO SCH ×2 (08:44→20:59)
[2020-08-27] MEDS: ASPIRIN EC 81 MG TABLET PO SCH (08:44)
[2020-08-27] MEDS: LORATADINE 10 MG TABLET PEG SCH (08:44)
[2020-08-27] MEDS: carvediloL 6.25 MG TABLET PEG SCH ×2 (08:44→16:16)
[2020-08-27] MEDS: NYSTATIN POWDER 15 GM BOTTLE TOP SCH ×2 (08:44→21:30)
[2020-08-27] MEDS ORDERED: SODIUM CHLORIDE 0.9% 1,000 ML IV PRN (13:35)
[2020-08-27] MEDS: GABAPENTIN 50 MG/ML 30 ML/BOTTLE PEG SCH ×2 (16:16→21:00)
[2020-08-27] MEDS: SIMVASTATIN 10 MG TABLET PO SCH (20:59)
[2020-08-28] MEDS: KETOROLAC 10 MG TABLET PO SCH ×4 (00:35→17:23)
[2020-08-28] MEDS: ALBUTEROL/IPRATROPIUM 3 ML NEB RESP TX SCH ×7 (00:43→23:40)
[2020-08-28] MEDS: AMPICILLIN/SULBACTAM 3,000 MG in SODIUM CHLORIDE 0.9% 100 ML IV SCH ×3 (03:30→17:23)
[2020-08-28 05:18] LABS: Basophils % 0.4 % (0.0-0.8); Eosinophils # 0.5 10*3/uL (0.0-0.87); Eosinophils % 5.1 % (0.00-10.9); Hematocrit 27.4 VOL% (42.0-52.0); Immature Granulocytes % 0.6 %; Immature Granulocytes Absolute 0.06 #; Lymphocytes # 2.1 10*3/uL (1.4-4.0); Lymphocytes % 20.3 % (21.2-54.2); Mean Corpuscular HGB Conc 31.4 GM/DL (32-36); Mean Platelet Volume 10.9 FL (9.6-12.0); Monocytes % 8.1 % (1.7-12.7); Neutrophils % 65.5 % (38.7-73.9); Platelet Count 405 T/CUMM (130-400); Red Cell Distribution Width 17.4 % (9.3-17.3); White Blood Count 10.5 T/CUMM (4-12)
[2020-08-28 05:19] LABS: Hemoglobin 8.6 GM/DL (14.0-18.0)
[2020-08-28 05:41] LABS: Calcium 8.3 MG/DL (8.5-10.1); Osmolality,Calculated 285.1 MOS/KG (273-304); Potassium 3.8 MMOL/L (3.5-5.1)
[2020-08-28] MEDS: SODIUM CHLORIDE 3% 4 ML NEB RESP TX SCH ×3 (07:01→19:44)
[2020-08-28] MEDS: busPIRone 15 MG TABLET PEG SCH ×2 (09:42→22:27)
[2020-08-28] MEDS: carvediloL 6.25 MG TABLET PEG SCH ×2 (09:42→17:23)
[2020-08-28] MEDS: MULTIVITAMIN (CENTRUM) TABLET PEG SCH (09:43)
[2020-08-28] MEDS: LORATADINE 10 MG TABLET PEG SCH (09:43)
[2020-08-28] MEDS: TAMSULOSIN 0.4 MG CAPSULE PO SCH ×2 (09:43→22:27)
[2020-08-28] MEDS: ASPIRIN EC 81 MG TABLET PO SCH (09:43)
[2020-08-28] MEDS: NYSTATIN POWDER 15 GM BOTTLE TOP SCH ×2 (09:43→22:31)
[2020-08-28] MEDS: MENTHOL/ZINC OXIDE OINT 71 GM JAR TOP SCH ×2 (09:44→22:29)
[2020-08-28] MEDS: ZIPRASIDONE 20 MG/1 ML VIAL IM PRN ×2 (09:45→15:22)
[2020-08-28] MEDS: GABAPENTIN 50 MG/ML 30 ML/BOTTLE PEG SCH ×2 (17:23→22:30)
[2020-08-28] MEDS: SIMVASTATIN 10 MG TABLET PO SCH (22:27)
[2020-08-29] MEDS: KETOROLAC 10 MG TABLET PO SCH ×3 (00:49→14:39)
[2020-08-29] MEDS: ALBUTEROL/IPRATROPIUM 3 ML NEB RESP TX SCH ×5 (03:33→19:36)
[2020-08-29 06:25] LABS: Basophils # 0.1 10*3/uL (0.0-0.2); Basophils % 0.4 % (0.0-0.8); Eosinophils # 0.5 10*3/uL (0.0-0.87); Eosinophils % 3.6 % (0.00-10.9); Hematocrit 32.5 VOL% (42.0-52.0); Hemoglobin 10.4 GM/DL (14.0-18.0); Immature Granulocytes % 0.4 %; Immature Granulocytes Absolute 0.06 #; Lymphocytes # 2.3 10*3/uL (1.4-4.0); Lymphocytes % 16.4 % (21.2-54.2); Mean Corpuscular Volume 83.1 FL (87-102); Mean Platelet Volume 11.2 FL (9.6-12.0); Neutrophils % 72.2 % (38.7-73.9); Platelet Count 406 T/CUMM (130-400); Red Blood Count 3.91 MC/CUMM (3.8-5.5); Red Cell Distribution Width 17.1 % (9.3-17.3)
[2020-08-29 06:50] LABS: Calcium 8.6 MG/DL (8.5-10.1); Osmolality,Calculated 279.4 MOS/KG (273-304); Potassium 4.1 MMOL/L (3.5-5.1)
[2020-08-29] MEDS: SODIUM CHLORIDE 3% 4 ML NEB RESP TX SCH ×3 (07:33→19:36)
[2020-08-29] MEDS: DORNASE ALFA 2.5 MG/2.5 ML VIAL RESP TX SCH ×2 (09:07→19:51)
[2020-08-29] MEDS: LORATADINE 10 MG TABLET PEG SCH (10:03)
[2020-08-29] MEDS: busPIRone 15 MG TABLET PEG SCH ×2 (10:03→21:56)
[2020-08-29] MEDS: TAMSULOSIN 0.4 MG CAPSULE PO SCH ×2 (10:03→21:56)
[2020-08-29] MEDS: MULTIVITAMIN (CENTRUM) TABLET PEG SCH (10:03)
[2020-08-29] MEDS: ASPIRIN EC 81 MG TABLET PO SCH (10:03)
[2020-08-29] MEDS: carvediloL 6.25 MG TABLET PEG SCH ×2 (10:04→16:16)
[2020-08-29] MEDS: MENTHOL/ZINC OXIDE OINT 71 GM JAR TOP SCH ×2 (10:04→21:56)
[2020-08-29] MEDS: NYSTATIN POWDER 15 GM BOTTLE TOP SCH ×2 (10:04→21:56)
[2020-08-29] MEDS: GABAPENTIN 50 MG/ML 30 ML/BOTTLE PEG SCH ×2 (16:18→21:54)
[2020-08-29] MEDS: ZIPRASIDONE 20 MG/1 ML VIAL IM PRN (21:56)
[2020-08-29] MEDS: SIMVASTATIN 10 MG TABLET PO SCH (21:56)
[2020-08-30] MEDS: ALBUTEROL/IPRATROPIUM 3 ML NEB RESP TX SCH ×6 (00:20→19:20)
[2020-08-30 05:37] LABS: Basophils # 0.1 10*3/uL (0.0-0.2); Basophils % 0.6 % (0.0-0.8); Eosinophils # 0.4 10*3/uL (0.0-0.87); Hematocrit 32.9 VOL% (42.0-52.0); Hemoglobin 10.4 GM/DL (14.0-18.0); Immature Granulocytes % 0.5 %; Immature Granulocytes Absolute 0.07 #; Lymphocytes # 2.5 10*3/uL (1.4-4.0); Mean Corpuscular HGB Conc 31.6 GM/DL (32-36); Mean Corpuscular Volume 82.7 FL (87-102); Mean Platelet Volume 11.4 FL (9.6-12.0); Monocytes % 8.9 % (1.7-12.7); Platelet Count 381 T/CUMM (130-400); Red Blood Count 3.98 MC/CUMM (3.8-5.5); Red Cell Distribution Width 17.3 % (9.3-17.3); White Blood Count 13.9 T/CUMM (4-12)
[2020-08-30 05:59] LABS: Calcium 8.6 MG/DL (8.5-10.1); Osmolality,Calculated 275.7 MOS/KG (273-304); Potassium 4.2 MMOL/L (3.5-5.1)
[2020-08-30] MEDS: SODIUM CHLORIDE 3% 4 ML NEB RESP TX SCH ×3 (07:01→19:20)
[2020-08-30] MEDS: DORNASE ALFA 2.5 MG/2.5 ML VIAL RESP TX SCH ×2 (07:01→19:31)
[2020-08-30] MEDS: carvediloL 6.25 MG TABLET PEG SCH ×2 (09:29→17:22)
[2020-08-30] MEDS: LORATADINE 10 MG TABLET PEG SCH (09:29)
[2020-08-30] MEDS: MENTHOL/ZINC OXIDE OINT 71 GM JAR TOP SCH ×2 (09:29→22:25)
[2020-08-30] MEDS: busPIRone 15 MG TABLET PEG SCH ×2 (09:29→22:26)
[2020-08-30] MEDS: TAMSULOSIN 0.4 MG CAPSULE PO SCH ×2 (09:29→22:26)
[2020-08-30] MEDS: ASPIRIN EC 81 MG TABLET PO SCH (09:29)
[2020-08-30] MEDS: MULTIVITAMIN (CENTRUM) TABLET PEG SCH (09:29)
[2020-08-30] MEDS: NYSTATIN POWDER 15 GM BOTTLE TOP SCH ×2 (09:29→22:24)
[2020-08-30] MEDS: ZIPRASIDONE 20 MG/1 ML VIAL IM PRN (16:52)
[2020-08-30] MEDS: GABAPENTIN 50 MG/ML 30 ML/BOTTLE PEG SCH ×2 (17:20→22:27)
[2020-08-30] MEDS: SIMVASTATIN 10 MG TABLET PO SCH (22:26)
[2020-08-31] MEDS: ALBUTEROL/IPRATROPIUM 3 ML NEB RESP TX SCH ×6 (00:28→23:32)
[2020-08-31 06:51] LABS: Calcium 8.7 MG/DL (8.5-10.1); Osmolality,Calculated 283.3 MOS/KG (273-304); Potassium 4.3 MMOL/L (3.5-5.1)
[2020-08-31] MEDS ORDERED: PROMETHAZINE 25 MG/1 ML VIAL IM ONE (07:30)
[2020-08-31] MEDS ORDERED: MEPERIDINE 50 MG/1 ML VIAL IM ONE (07:30)
[2020-08-31] MEDS: SODIUM CHLORIDE 3% 4 ML NEB RESP TX SCH ×3 (07:30→19:24)
[2020-08-31] MEDS: DORNASE ALFA 2.5 MG/2.5 ML VIAL RESP TX SCH ×2 (07:40→19:24)
[2020-08-31] MEDS ORDERED: LIDOCAINE 2% 20 ML VIAL RESP TX ONE (08:00)
[2020-08-31] MEDS ORDERED: MIDAZOLAM 2 MG/2 ML VIAL IV ONE (08:00)
[2020-08-31] MEDS ORDERED: LIDOCAINE 1% 20 ML VIAL MISC INJ ONE (08:00)
[2020-08-31] MEDS ORDERED: LIDOCAINE 2% VISCOUS 100 ML BOTTLE SWISH/SPIT ONE (08:00)
[2020-08-31] MEDS: TAMSULOSIN 0.4 MG CAPSULE PO SCH ×2 (10:26→21:09)
[2020-08-31] MEDS: carvediloL 6.25 MG TABLET PEG SCH ×2 (10:26→16:26)
[2020-08-31] MEDS: LORATADINE 10 MG TABLET PEG SCH (10:26)
[2020-08-31] MEDS: MULTIVITAMIN (CENTRUM) TABLET PEG SCH (10:26)
[2020-08-31] MEDS: busPIRone 15 MG TABLET PEG SCH ×2 (10:26→21:09)
[2020-08-31] MEDS: ASPIRIN EC 81 MG TABLET PO SCH (10:26)
[2020-08-31] MEDS: MENTHOL/ZINC OXIDE OINT 71 GM JAR TOP SCH ×2 (10:27→21:09)
[2020-08-31] MEDS: NYSTATIN POWDER 15 GM BOTTLE TOP SCH ×2 (10:27→21:09)
[2020-08-31] MEDS: AMPICILLIN/SULBACTAM 3,000 MG in SODIUM CHLORIDE 0.9% 100 ML IV SCH ×2 (12:17→21:09)
[2020-08-31] MEDS: GABAPENTIN 50 MG/ML 30 ML/BOTTLE PEG SCH ×2 (16:26→21:09)
[2020-08-31] MEDS: ZIPRASIDONE 20 MG/1 ML VIAL IM PRN (19:55)
[2020-08-31] MEDS: SIMVASTATIN 10 MG TABLET PO SCH (21:09)
[2020-09-01] MEDS: ALBUTEROL/IPRATROPIUM 3 ML NEB RESP TX SCH ×6 (02:41→19:19)
[2020-09-01] MEDS: AMPICILLIN/SULBACTAM 3,000 MG in SODIUM CHLORIDE 0.9% 100 ML IV SCH ×3 (04:32→21:02)
[2020-09-01] MEDS: DORNASE ALFA 2.5 MG/2.5 ML VIAL RESP TX SCH ×2 (07:30→19:19)
[2020-09-01] MEDS: MULTIVITAMIN (CENTRUM) TABLET PEG SCH (08:25)
[2020-09-01] MEDS: busPIRone 15 MG TABLET PEG SCH ×2 (08:25→21:02)
[2020-09-01] MEDS: TAMSULOSIN 0.4 MG CAPSULE PO SCH ×2 (08:26→21:02)
[2020-09-01] MEDS: NYSTATIN POWDER 15 GM BOTTLE TOP SCH ×2 (08:26→21:02)
[2020-09-01] MEDS: carvediloL 6.25 MG TABLET PEG SCH ×2 (08:26→17:57)
[2020-09-01] MEDS: LORATADINE 10 MG TABLET PEG SCH (08:26)
[2020-09-01] MEDS: ASPIRIN EC 81 MG TABLET PO SCH (08:26)
[2020-09-01] MEDS: MENTHOL/ZINC OXIDE OINT 71 GM JAR TOP SCH ×2 (08:27→21:03)
[2020-09-01] MEDS: GABAPENTIN 50 MG/ML 30 ML/BOTTLE PEG SCH ×2 (17:58→21:02)
[2020-09-01] MEDS: SIMVASTATIN 10 MG TABLET PO SCH (21:02)
[2020-09-02] MEDS: ALBUTEROL/IPRATROPIUM 3 ML NEB RESP TX SCH ×7 (00:24→23:15)
[2020-09-02 04:44] LABS: Basophils % 0.3 % (0.0-0.8); Eosinophils # 0.6 10*3/uL (0.0-0.87); Hematocrit 30.2 VOL% (42.0-52.0); Hemoglobin 9.2 GM/DL (14.0-18.0); Immature Granulocytes % 0.5 %; Immature Granulocytes Absolute 0.05 #; Lymphocytes # 2.4 10*3/uL (1.4-4.0); Lymphocytes % 24.5 % (21.2-54.2); Mean Corpuscular HGB Conc 30.5 GM/DL (32-36); Mean Corpuscular Volume 85.8 FL (87-102); Mean Platelet Volume 10.8 FL (9.6-12.0); Monocytes % 10.8 % (1.7-12.7); Neutrophils % 57.9 % (38.7-73.9); Platelet Count 377 T/CUMM (130-400); Red Blood Count 3.52 MC/CUMM (3.8-5.5); Red Cell Distribution Width 17.3 % (9.3-17.3); White Blood Count 9.6 T/CUMM (4-12)
[2020-09-02 05:06] LABS: Calcium 8.3 MG/DL (8.5-10.1); Osmolality,Calculated 278.5 MOS/KG (273-304); Potassium 3.9 MMOL/L (3.5-5.1)
[2020-09-02] MEDS: AMPICILLIN/SULBACTAM 3,000 MG in SODIUM CHLORIDE 0.9% 100 ML IV SCH ×3 (05:25→23:14)
[2020-09-02] MEDS: DORNASE ALFA 2.5 MG/2.5 ML VIAL RESP TX SCH ×2 (07:25→19:40)
[2020-09-02] MEDS: MULTIVITAMIN (CENTRUM) TABLET PEG SCH (08:41)
[2020-09-02] MEDS: TAMSULOSIN 0.4 MG CAPSULE PO SCH ×2 (08:41→23:14)
[2020-09-02] MEDS: busPIRone 15 MG TABLET PEG SCH ×2 (08:41→22:40)
[2020-09-02] MEDS: ASPIRIN EC 81 MG TABLET PO SCH (08:41)
[2020-09-02] MEDS: carvediloL 6.25 MG TABLET PEG SCH ×2 (08:41→16:08)
[2020-09-02] MEDS: LORATADINE 10 MG TABLET PEG SCH (08:41)
[2020-09-02] MEDS: NYSTATIN POWDER 15 GM BOTTLE TOP SCH ×2 (10:58→23:14)
[2020-09-02] MEDS: MENTHOL/ZINC OXIDE OINT 71 GM JAR TOP SCH ×2 (10:58→23:14)
[2020-09-02] MEDS: GABAPENTIN 50 MG/ML 30 ML/BOTTLE PEG SCH ×2 (16:08→22:39)
[2020-09-02] MEDS: SIMVASTATIN 10 MG TABLET PO SCH (22:39)
[2020-09-02] MEDS: ZIPRASIDONE 20 MG/1 ML VIAL IM PRN (23:15)
[2020-09-03] MEDS: ALBUTEROL/IPRATROPIUM 3 ML NEB RESP TX SCH ×3 (03:45→11:05)
[2020-09-03] MEDS: AMPICILLIN/SULBACTAM 3,000 MG in SODIUM CHLORIDE 0.9% 100 ML IV SCH (06:13)
[2020-09-03] MEDS: DORNASE ALFA 2.5 MG/2.5 ML VIAL RESP TX SCH (07:24)
[2020-09-03] MEDS: LORATADINE 10 MG TABLET PEG SCH (08:40)
[2020-09-03] MEDS: MULTIVITAMIN (CENTRUM) TABLET PEG SCH (08:40)
[2020-09-03] MEDS: ASPIRIN EC 81 MG TABLET PO SCH (08:40)
[2020-09-03] MEDS: carvediloL 6.25 MG TABLET PEG SCH (08:40)
[2020-09-03] MEDS: TAMSULOSIN 0.4 MG CAPSULE PO SCH (08:41)
[2020-09-03] MEDS: busPIRone 15 MG TABLET PEG SCH (08:41)
[2020-09-03] MEDS ORDERED: SERTRALINE 25 MG TABLET PEG SCH (09:00)
[2020-09-03] MEDS: MENTHOL/ZINC OXIDE OINT 71 GM JAR TOP SCH (09:50)
[2020-09-03] MEDS: NYSTATIN POWDER 15 GM BOTTLE TOP SCH (09:50)
[2020-09-03 12:26] VITALS: BP 148/81
== END 2020-09-03 12:50 | DRG 853 ==
LOC: EDBD → EDUNIT# → N.ED 16:26 → N.EDINP 19:39 → SUATTDRO 19:39 → N.EDINP 22:28 → N.3E 22:37 → N.ICU 08-24 12:11 → N.5E 08-26 13:44
PROVIDERS: ADMIT Internal Medicine; ATTEND Internal Medicine

== ENCOUNTER 2022-03-19 17:34 | Inpatient (IN) ==
[2022-03-19] MEDS ORDERED: SODIUM CHLORIDE 0.9% 1,000 ML IV STA (18:24)
[2022-03-19] MEDS ORDERED: ALBUTEROL/IPRATROPIUM 3 ML NEB RESP TX STA (18:24)
[2022-03-19] MEDS ORDERED: ONDANSETRON 4 MG/2 ML VIAL IV ONE (18:25)
[2022-03-19] MEDS ORDERED: MORPHINE 2 MG/1 ML SYRINGE IV STA (18:25)
[2022-03-19 18:44] LABS: Arterial Base Excess iSTAT 3 MMOL/L (-2.5-2.5); Arterial Bicarbonate iSTAT 26.9 MMOL/L (20-26); Arterial O2 Saturation iSTAT 95 % (95-100); Arterial PCO2 iSTAT 38 MM HG (35-48); Arterial PO2 iSTAT 71 MM HG (80-95); Arterial Total CO2 iSTAT 28 MMO/L (23-27); Arterial pH iSTAT 7.453 (7.35-7.45)
[2022-03-19 19:18] LABS: Basophils # 0.1 10*3/uL (0.0-0.2); Basophils % 0.5 % (0.0-0.8); Eosinophils # 0.4 10*3/uL (0.0-0.87); Eosinophils % 3.2 % (0.00-10.9); Hematocrit 45.4 VOL% (42.0-52.0); Hemoglobin 14.6 GM/DL (14.0-18.0); Immature Granulocytes % 0.4 %; Immature Granulocytes Absolute 0.04 #; Lymphocytes % 18.4 % (21.2-54.2); Mean Corpuscular HGB Conc 32.2 GM/DL (32-36); Mean Corpuscular Volume 92.7 FL (87-102); Mean Platelet Volume 13.7 FL (9.6-12.0); Monocytes # 0.7 10*3/uL (0.11-0.8); Monocytes % 6.5 % (1.7-12.7); Platelet Count 163 T/CUMM (130-400); Red Cell Distribution Width 13.5 % (9.3-17.3); White Blood Count 10.9 T/CUMM (4-12)
[2022-03-19 19:27] LABS: INR 1.1; PT Patient Result 12.2 SECS (10.1-12.1)
[2022-03-19 19:41] LABS: Albumin 3.3 G/DL (3.4-5.0); Bilirubin,Total 0.5 MG/DL (0.20-1.00); Calcium 9.2 MG/DL (8.5-10.1); Osmolality,Calculated 296.4 MOS/KG (273-304); Potassium 4.6 MMOL/L (3.5-5.1); Total Protein 7.8 G/DL (6.4-8.2)
[2022-03-19] MEDS ORDERED: cefTRIAXone 1,000 MG in SODIUM CHLORIDE 0.9% 100 ML IV STA (20:37)
[2022-03-19 20:44] LABS: Mucus,Urine Occasional /LPF (Occasional); RBC,Urine 5 /HPF (0-4)
[2022-03-19] MEDS ORDERED: ONDANSETRON 4 MG/2 ML VIAL IV PRN (20:44)
[2022-03-19] MEDS ORDERED: LACTULOSE 20 GM/30 ML UDCUP PO PRN (20:44)
[2022-03-19] MEDS ORDERED: GLUCAGON 1 MG VIAL IM PRN (20:44)
[2022-03-19 20:45] LABS: Glucose,Urine (UA) Negative (Negative); Ketones,Urine Negative (Negative); Nitrite,Urine Negative (Negative); Protein,Urine Trace mg/dL (Negative); Urine Appearance Clear (Clear); Urine Color Yellow (Yellow); Urine pH 7.5 (4.5-8.0)
[2022-03-19 20:46] LABS: Bilirubin,Urine Negative (Negative); Blood, Urine Trace mg/dL (Negative)
[2022-03-19] MEDS ORDERED: AZITHROMYCIN INJ 500 MG in SODIUM CHLORIDE 0.9% 250 ML IV SCH (21:00)
[2022-03-19] MEDS ORDERED: DEXTROSE 10% 250 ML BAG IV PRN (21:11)
[2022-03-19] MEDS: LACTATED RINGERS 1,000 ML IV SCH (23:17)
[2022-03-20] MEDS ORDERED: PNEUMOCOCCAL VACCINE (13 VALENT) 0.5 ML SYRINGE IM ONE
[2022-03-20 05:32] LABS: Basophils # 0.1 10*3/uL (0.0-0.2); Basophils % 0.3 % (0.0-0.8); Eosinophils # 0.1 10*3/uL (0.0-0.87); Hematocrit 40.1 VOL% (42.0-52.0); Immature Granulocytes % 0.4 %; Immature Granulocytes Absolute 0.06 #; Lymphocytes # 3.3 10*3/uL (1.4-4.0); Lymphocytes % 22.2 % (21.2-54.2); Mean Corpuscular HGB Conc 32.4 GM/DL (32-36); Mean Platelet Volume 13.9 FL (9.6-12.0); Monocytes % 6.5 % (1.7-12.7); Neutrophils % 69.6 % (38.7-73.9); Platelet Count 151 T/CUMM (130-400); Red Blood Count 4.31 MC/CUMM (3.8-5.5); Red Cell Distribution Width 13.4 % (9.3-17.3); White Blood Count 14.7 T/CUMM (4-12)
[2022-03-20 05:41] LABS: Calcium 8.5 MG/DL (8.5-10.1); Osmolality,Calculated 295.4 MOS/KG (273-304); Potassium 4.2 MMOL/L (3.5-5.1)
[2022-03-20] MEDS ORDERED: ZOLPIDEM 5 MG TABLET PO PRN (05:56)
[2022-03-20] MEDS ORDERED: ACETAMINOPHEN 325 MG TABLET PEG PRN (05:56)
[2022-03-20 06:25] LABS: Anisocytosis Slight; Platelet Estimate Normal
[2022-03-20] MEDS: ALBUTEROL/IPRATROPIUM 3 ML NEB RESP TX SCH ×4 (07:15→19:26)
[2022-03-20] MEDS ORDERED: guaiFENesin 200 MG/10 ML UDCUP PEG PRN (09:00)
[2022-03-20] MEDS: CALCIUM (CARBONATE)/VITAMIN D 600 MG-400 UNIT TABLET PO SCH (10:49)
[2022-03-20] MEDS: ENOXAPARIN 40 MG/0.4 ML SYRINGE SUBCUT SCH (10:49)
[2022-03-20] MEDS: FLUTICASONE 50 MCG NASAL SPRAY 16 GM BOTTLE BOTH NARES SCH (10:49)
[2022-03-20] MEDS: ASPIRIN EC 81 MG TABLET PO SCH (10:50)
[2022-03-20] MEDS: LORATADINE 10 MG TABLET PEG SCH (10:50)
[2022-03-20] MEDS: TAMSULOSIN 0.4 MG CAPSULE PO SCH ×2 (10:50→20:18)
[2022-03-20] MEDS: SERTRALINE 50 MG TABLET PEG SCH (10:50)
[2022-03-20] MEDS: busPIRone 15 MG TABLET PEG SCH ×2 (10:50→20:18)
[2022-03-20] MEDS: THIAMINE 100 MG TABLET PEG SCH (10:50)
[2022-03-20] MEDS: carvediloL 6.25 MG TABLET PEG SCH ×2 (10:50→20:18)
[2022-03-20] MEDS: DIVALPROEX 250 MG TABLET PO SCH ×2 (10:50→20:17)
[2022-03-20] MEDS: VORTIOXETINE 10 MG PEG SCH (10:51)
[2022-03-20] MEDS: LACTATED RINGERS 1,000 ML IV SCH (10:52)
[2022-03-20] MEDS: GABAPENTIN 50 MG/ML 30 ML/BOTTLE PO SCH ×2 (11:02→20:18)
[2022-03-20] MEDS: SIMVASTATIN 10 MG TABLET PO SCH (20:18)
[2022-03-20] MEDS: cefTRIAXone 1,000 MG in SODIUM CHLORIDE 0.9% 100 ML IV SCH (20:28)
[2022-03-21] MEDS: ALBUTEROL/IPRATROPIUM 3 ML NEB RESP TX SCH ×4 (00:40→19:25)
[2022-03-21] MEDS: LACTATED RINGERS 1,000 ML IV SCH ×2 (03:26→18:03)
[2022-03-21 05:08] LABS: Calcium 8.2 MG/DL (8.5-10.1); Osmolality,Calculated 289.8 MOS/KG (273-304); Phosphorous 2.8 MG/DL (2.5-4.9); Potassium 3.9 MMOL/L (3.5-5.1)
[2022-03-21] MEDS: DIVALPROEX 250 MG TABLET PO SCH ×2 (10:50→21:00)
[2022-03-21] MEDS: busPIRone 15 MG TABLET PEG SCH ×2 (10:50→21:00)
[2022-03-21] MEDS: TAMSULOSIN 0.4 MG CAPSULE PO SCH ×2 (10:50→21:02)
[2022-03-21] MEDS: AZITHROMYCIN 250 MG TABLET PO SCH (10:51)
[2022-03-21] MEDS: CALCIUM (CARBONATE)/VITAMIN D 600 MG-400 UNIT TABLET PO SCH (10:51)
[2022-03-21] MEDS: MULTIVITAMIN (CENTRUM) TABLET PEG SCH (10:51)
[2022-03-21] MEDS: ASPIRIN EC 81 MG TABLET PO SCH (10:51)
[2022-03-21] MEDS: carvediloL 6.25 MG TABLET PEG SCH ×2 (10:51→21:02)
[2022-03-21] MEDS: LORATADINE 10 MG TABLET PEG SCH (10:51)
[2022-03-21] MEDS: GABAPENTIN 50 MG/ML 30 ML/BOTTLE PO SCH ×2 (10:52→21:00)
[2022-03-21] MEDS: SERTRALINE 50 MG TABLET PEG SCH (10:52)
[2022-03-21] MEDS: ENOXAPARIN 40 MG/0.4 ML SYRINGE SUBCUT SCH (10:52)
[2022-03-21] MEDS: FLUTICASONE 50 MCG NASAL SPRAY 16 GM BOTTLE BOTH NARES SCH (10:53)
[2022-03-21] MEDS: VORTIOXETINE 10 MG PEG SCH (13:24)
[2022-03-21] MEDS: THIAMINE 100 MG TABLET PEG SCH (14:17)
[2022-03-21] MEDS: SIMVASTATIN 10 MG TABLET PO SCH (21:00)
[2022-03-21] MEDS: cefTRIAXone 1,000 MG in SODIUM CHLORIDE 0.9% 100 ML IV SCH (21:59)
[2022-03-22] MEDS: ALBUTEROL/IPRATROPIUM 3 ML NEB RESP TX SCH ×2 (00:10→07:23)
[2022-03-22] MEDS: LACTATED RINGERS 1,000 ML IV SCH (04:09)
[2022-03-22 05:51] LABS: Basophils % 0.3 % (0.0-0.8); Eosinophils # 0.5 10*3/uL (0.0-0.87); Eosinophils % 5.1 % (0.00-10.9); Hematocrit 36.6 VOL% (42.0-52.0); Hemoglobin 11.7 GM/DL (14.0-18.0); Immature Granulocytes % 0.3 %; Immature Granulocytes Absolute 0.03 #; Lymphocytes # 1.8 10*3/uL (1.4-4.0); Lymphocytes % 20.7 % (21.2-54.2); Mean Corpuscular Volume 93.4 FL (87-102); Mean Platelet Volume 13.9 FL (9.6-12.0); Monocytes # 0.9 10*3/uL (0.11-0.8); Monocytes % 10.4 % (1.7-12.7); Neutrophils % 63.2 % (38.7-73.9); Platelet Count 129 T/CUMM (130-400); Red Blood Count 3.92 MC/CUMM (3.8-5.5); Red Cell Distribution Width 13.5 % (9.3-17.3); White Blood Count 8.9 T/CUMM (4-12)
[2022-03-22 06:05] LABS: Calcium 8.2 MG/DL (8.5-10.1); Osmolality,Calculated 280.4 MOS/KG (273-304); Potassium 3.6 MMOL/L (3.5-5.1)
[2022-03-22] MEDS: THIAMINE 100 MG TABLET PEG SCH (09:31)
[2022-03-22] MEDS: CALCIUM (CARBONATE)/VITAMIN D 600 MG-400 UNIT TABLET PO SCH (09:31)
[2022-03-22] MEDS: TAMSULOSIN 0.4 MG CAPSULE PO SCH (09:31)
[2022-03-22] MEDS: DIVALPROEX 250 MG TABLET PO SCH (09:31)
[2022-03-22] MEDS: AZITHROMYCIN 250 MG TABLET PO SCH (09:32)
[2022-03-22] MEDS: carvediloL 6.25 MG TABLET PEG SCH (09:32)
[2022-03-22] MEDS: ASPIRIN EC 81 MG TABLET PO SCH (09:32)
[2022-03-22] MEDS: busPIRone 15 MG TABLET PEG SCH (09:32)
[2022-03-22] MEDS: LORATADINE 10 MG TABLET PEG SCH (09:32)
[2022-03-22] MEDS: MULTIVITAMIN (CENTRUM) TABLET PEG SCH (09:32)
[2022-03-22] MEDS: SERTRALINE 50 MG TABLET PEG SCH (09:32)
[2022-03-22] MEDS: ENOXAPARIN 40 MG/0.4 ML SYRINGE SUBCUT SCH (09:33)
[2022-03-22] MEDS: FLUTICASONE 50 MCG NASAL SPRAY 16 GM BOTTLE BOTH NARES SCH (09:33)
[2022-03-22] MEDS: GABAPENTIN 50 MG/ML 30 ML/BOTTLE PO SCH (09:36)
[2022-03-22] MEDS: VORTIOXETINE 10 MG PEG SCH (09:38)
[2022-03-22 12:23] VITALS: BP 119/60
== END 2022-03-22 13:50 | DRG 178 ==
LOC: EDUNIT# → EDBD → N.ED 17:34 → SUATTDRO 20:44 → N.EDINP 20:44 → N.3E 22:25
PROVIDERS: ADMIT Emergency Medicine; ATTEND Internal Medicine